=== PATIENT | male | born 1945 | race Caucasian/White ===

== ENCOUNTER 2017-08-14 15:24 | Emergency (ER) | payer MEDICARE, OTHER, SELFPAY ==
[2017-08-14 15:26] VITALS: BP 145/84; PULSE 95; RESP 15; TEMP 37.6; O2SAT 96; BMI 31.3
--- NOTE | 2017-08-14 15:37 | EKG12_ITS ---
Test Reason : GENERAL ILLNESS Blood Pressure : / mmHG Vent. Rate : 096 BPM Atrial Rate : 096 BPM P-R Int : 166 ms QRS Dur : 090 ms QT Int : 336 ms P-R-T Axes : 056 058 034 degrees QTc Int : 424 ms Normal sinus rhythm Normal ECG Confirmed by AMERICA PITTS ([id number]), medical editor NORMAN SANTIAGO ([id number]) on 08/28/2017 5:14:35 PM Referred By: CHERISE Confirmed By:AMERICA PITTS
--- NOTE | 2017-08-14 15:56 | ED.VISSUMM ---
- ER Visit Summary Date of Service: 08/14/17 Chief Complaint: Lightheadedness History of Present Illness: The patient is a 72 M presents to the emergency department with lightheadedness. The patient was actually out in the heat today plowing. He was riding his tractor for almost 8 hours. He states he did not drink anything besides coffee this morning. States when he came into the house, he was feeling very warm. His states that he seemed unsteady on his feet. He has had a mild sore throat for the past 24 hours. He denies fevers, chills, cough, or abdominal pain. He denies any other systemic symptoms. He states his never had symptoms like this before. Physical Examination: Vital signs reviewed General: Well-nourished, well-developed Head: Normocephalic, atraumatic Eyes: Pupils equal and reactive, extraocular muscles intact Neck, supple, no lymphadenopathy Heart: Regular rate and rhythm Respiratory: No distress, clear bilaterally Abdomen: Soft, nontender, nondistended, no peritoneal signs Back: Nontender Extremities: Nontender, no edema, no cords Skin: Normal color no rash Neuro: Alert and oriented, no focal or lateralizing deficits Test Results: [] Emergency Department Course and Treatment: The patient had mild sore throat, nasal drainage, but denied any cough. His symptoms did seem consistent with heat exhaustion. IV was established. Patient was given fluids. Labs were obtained which does show mild elevation of his creatinine. While here, the patient did spike a fever of 101.4. I did obtain a flu in the urine. His chest x-ray shows no focal infiltrate. Flu was negative. Urine shows no evidence of infection. With Tylenol and fluids, his symptoms resolved. I am unsure if this is actually infectious or more because of his heat illness. The patient was cold and had resolution of symptoms. He has no ataxia. He is feeling improved. At this point, I do feel that he is safe for outpatient therapy. Family is comfortable with plan of care. He will be discharged home. Treatment Plan: [] Disposition: Discharge Impression: 1. Heat illness This note was generated with [employer] software. It may contain incorrect words, spelling, and punctuation that were not noted in review of the chart prior to signing ED Disposition - Plan for ED Patient: Disposition: Home or Assisted Living Chief Complaint: General Illness Instructions: ED Exhaustion Heat Referrals: Shelli Romo MD [Primary Care Provider] -
[2017-08-14 16:21] LABS: Absolute Lymphocyte Count 1.26 X10^3/ul (0.83-4.51); Absolute Neutrophil Count 11.6 X10^3/uL (2.0-7.7); Basophil# 0.03 X10^3/uL; Basophil% 0.2 % (0-1); Eosinophil# 0.04 X10^3/uL; Eosinophils% 0.3 % (0-5); Hematocrit 46.3 % (40-54); Hemoglobin 15.5 g/dl (13.0-16.5); Lymphocyte # 1.26 X10^3/ul (4.0); Lymphocyte % 9.3 % (19-41); Mean Corp Hgb Conc 33.5 g/gl (32-36); Mean Corpuscular Hgb 31.3 pg (27.0-32.0); Mean Corpuscular Volume 93.3 fL (80-94); Monocyte# 0.64 X10^3/uL; Monocyte% 4.7 % (0-10); Neutrophil # 11.56 X10^3/uL (2.7-7.7); Neutrophil % 85.4 % (47-70); Platelet Count 169 K/mm3 (150-450); RBC Distribution Width CV 13.7 % (11.6-14.6); Red Blood Count 4.96 M/mm3 (4.6-6.2); White Blood Count 13.6 K/mm3 (4.4-11.0)
[2017-08-14] MEDS: 0.9% Normal Saline 1,000 ML 1000 ML IV ×2 (16:21→17:45)
[2017-08-14 16:22] LABS: POSITIVE COUNT NO; POSITIVE DIFFERENTIAL NO; POSITIVE MORPHOLOGY NO
[2017-08-14 16:27] VITALS: BP 135/80; PULSE 93; RESP 22; O2SAT 92
--- NOTE | 2017-08-14 16:50 | RAD_ITS ---
STUDY: X-RAY CHEST REASON FOR EXAM: Male, 72 years old. Cough TECHNIQUE: Frontal view of the chest COMPARISON: 05/21/2014. FINDINGS: The lungs are clear. There are no pleural effusions. There is no pneumothorax. The heart is normal in size. The visualized osseous structures are within normal limits. RAD/Chest 1 View (Portable) IMPRESSION: No acute thoracic pathology. Electronically Signed: Rancho Franco, at 17:54 EDT Tel , Service support ,
[2017-08-14 16:51] LABS: Anion Gap 8 (5-15); BUN 16 mg/dL (7-18); BUN/Creat Ratio 12.2 RATIO (10-20); Calcium,Total 9.2 mg/dL (8.5-10.1); Chloride 104 mmol/L (98-107); Creatinine, Serum 1.31 mg/dL (0.70-1.30); EST Glomerular Filtration Rate 57 mL/min (>60); Est Glom Filt Rate - Afr Amer 69 mL/min (>60); Glucose 112 mg/dL (74-106); Potassium 3.9 mmol/L (3.5-5.1); Sodium Level 137 mmol/L (136-145)
[2017-08-14 18:06] VITALS: BP 116/88; PULSE 94; RESP 16; O2SAT 98
[2017-08-14] MEDS: Acetaminophen 500 MG Tablet 1000 MG PO (18:31)
[2017-08-14 18:46] LABS: Bacteria 0 SEEN /hpf (None Seen); Color, Urine Yellow (Yellow); Glucose, Dipstick Normal (Normal); Ketone-Dipstick 15 mg/dl (Negative); Leukocyte Esterase-Dipstick Negative /ul (Negative); Mucous, Urine 0 SEEN /hpf (<or=2+); Nitrite-Dipstick Negative (Negative); Occult Blood-Urine 10 /ul (Negative); Protein-Dipstick 15 mg/dl (Negative); Specific Gravity, Urine 1.015 (1.002-1.030); Squamous Epithelial Cells - UA 0 SEEN /hpf (0-5); Urine Bilirubin Dipstick Negative (Negative); Urine Clarity Clear (Clear); Urine Urobilinogen Normal (Normal)
[2017-08-14 19:07] LABS: Red Blood Cells-Urine 0-5 SEEN /hpf (0-5)
[2017-08-14 19:08] LABS: White Blood Cells 0 SEEN /hpf (0-5)
[2017-08-14 20:03] VITALS: BP 118/77; PULSE 81; RESP 16; O2SAT 93
== END 2017-08-14 20:05 | disposition home or self-care (01) ==
PROVIDERS: Emergency Provider Emergency Medicine; Family Provider Family Medicine; PCP Family Medicine
DX: T67.9XXA Effect of heat and light, unspecified, initial encounter (principal); X58.XXXA Exposure to other specified factors, initial encounter; Y93.H9 Activity, other involving exterior property and land maintenance, building and construction; Y92.9 Unspecified place or not applicable; Y99.9 Unspecified external cause status; J02.9 Acute pharyngitis, unspecified; I10 Essential (primary) hypertension; Z79.899 Other long term (current) drug therapy
CPT/HCPCS: 71045; 80048; 81001; 85025; 87804; 93005; 99285

== ENCOUNTER → 2018-03-21 10:30 | Outpatient (CLI) | payer MEDICARE, OTHER, SELFPAY ==
[2018-03-21 12:35] LABS: Erythrocyte Sedimentation Rate 53 mm/hr (0-20)
[2018-03-21 12:38] LABS: Hematocrit 38.2 % (40-54); Hemoglobin 12.3 g/dl (13.0-16.5); Mean Corp Hgb Conc 32.2 g/gl (32-36); Mean Corpuscular Volume 93.2 fL (80-94); Mean Platelet Vol. 9.9 fl (6.2-12.0); Platelet Count 262 K/mm3 (150-450); RBC Distribution Width SD 43.2 fl (35.1-43.9); White Blood Count 8.7 K/mm3 (4.4-11.0)
[2018-03-21 12:40] LABS: Scan Indicated on CBC? Y/N NO
[2018-03-21 12:49] LABS: ALB/GLOB Ratio 0.7 RATIO (0.9-2.4); AST(SGOT) 18 U/L (15-37); Alanine Aminotransfer ALT/SGPT 21 U/L (16-61); Alkaline Phosphatase 60 U/L (45-117); Anion Gap 7 (5-15); BUN 8 mg/dL (7-18); BUN/Creat Ratio 7.7 RATIO (10-20); Calcium,Total 8.2 mg/dL (8.5-10.1); Chloride 103 mmol/L (98-107); Creatinine, Serum 1.04 mg/dL (0.70-1.30); EST Glomerular Filtration Rate 75 mL/min (>60); Est Glom Filt Rate - Afr Amer 90 mL/min (>60); Globulin 4.6 g/dL (2.2-4.2); Glucose 230 mg/dL (74-106); Potassium 4.1 mmol/L (3.5-5.1); Protein, Total 7.6 g/dL (6.4-8.2); Sodium Level 139 mmol/L (136-145)
== END ==
PROVIDERS: Family Provider Family Medicine; PCP Family Medicine; Referring Provider Internal Medicine Gastroenterology; Visit Provider Internal Medicine Gastroenterology
DX: K51.90 Ulcerative colitis, unspecified, without complications (principal)
CPT/HCPCS: 36415; 80053; 85027; 85652; 86140

== ENCOUNTER → 2018-03-27 13:12 | Outpatient (CLI) | payer MEDICARE, OTHER, SELFPAY ==
--- NOTE | 2018-03-27 11:52 | COLBX_PTH ---
PATIENT: ANDREW GUARDADO LOC: [facility] U#:[id number] AGE/SX: 79/M ROOM: RE03/27/[address]: Dr. Castro Macdonald MD : 1945 BED: DIS: SPEC #: [id number] RECD: 03/27/18 13:08 STATUS: CHAPARRO ZAKIYA #: [id number] RILEY: 03/27/18 11:[address]: Castro Macdonald DEPT: SURGICAL PATHOLOGY RECD BY: Alec Guidry ENTERED: 03/27/18 13:24 SP TYPE: COLON BX RAYMOND DR: Dr. Shelli Romo MD [facility] Tissues: A - Right colon B - Left colon Procedures: Surgery Specimen Level IV HEADER OPERATION: Colonoscopy PRE-OP DIAGNOSIS: Ulcerative colitis TISSUE SUBMITTED: A - Right colon biopsies, rule out ulcerative colitis, B - Left colon biopsies, rule out ulcerative colitis MICROSCOPIC DIAGNOSIS A. Right colon, biopsy: Tubular adenoma. See comment. B. Left colon, biopsy: Chronic active colitis with moderate activity. See microscopic description and comment. SJ:rg 03/28/18 COMMENT A. Changes consistent with active colitis are not seen. One of the fragments only show changes consistent with tubular adenoma. Other fragments are unremarkable. Correlation with clinical, endoscopic findings and appropriate follow up are necessary. MICROSCOPIC DESCRIPTION Slides are reviewed. B. The specimen is shows fragments of colonic mucosa with focal ulceration, acute and chronic inflammatory cell infiltrates in the lamina propria, cryptitis, crypt abscesses and mild glandular distortion. Granulomas are not seen. No evidence of dysplasia. GROSS DESCRIPTION A - Received in fixative is one container labeled with the patient's name and designated right colon biopsy. The specimen consists of multiple irregular fragments of light dean soft tissue that in aggregate measure 1 x 0.6 x 0.1 cm. The specimen is totally submitted in one cassette. B - Received in fixative is one container labeled with the patient's name and designated left colon biopsy. The specimen consists of multiple irregular fragments of light dean soft tissue that in aggregate measure 2 x 0.5 x 0.1 cm. The specimen is totally submitted in one cassette. / AM:eloisa 03/27/18 TC:2 CPT: 13446 x2
== END ==
PROVIDERS: Family Provider Family Medicine; PCP Family Medicine; Referring Provider Internal Medicine Gastroenterology; Visit Provider Internal Medicine Gastroenterology
DX: K51.90 Ulcerative colitis, unspecified, without complications (principal)
CPT/HCPCS: 87493; 88305

== ENCOUNTER → 2018-09-24 10:51 | Outpatient (CLI) | payer MEDICARE, OTHER, SELFPAY ==
[2018-09-24 13:46] LABS: Absolute Lymphocyte Count 2.05 X10^3/ul (0.83-4.51); Absolute Neutrophil Count 4.2 X10^3/uL (2.0-7.7); Basophil# 0.02 X10^3/uL; Basophil% 0.3 % (0-1); Eosinophil# 0.14 X10^3/uL; Hematocrit 44.3 % (40-54); Hemoglobin 14.6 g/dl (13.0-16.5); Lymphocyte # 2.05 X10^3/ul (4.0); Lymphocyte % 29.3 % (19-41); Mean Corpuscular Hgb 29.7 pg (27.0-32.0); Mean Corpuscular Volume 90.2 fL (80-94); Mean Platelet Vol. 10.6 fl (6.2-12.0); Monocyte# 0.55 X10^3/uL; Monocyte% 7.9 % (0-10); Neutrophil # 4.23 X10^3/uL (2.7-7.7); Neutrophil % 60.4 % (47-70); Platelet Count 179 K/mm3 (150-450); RBC Distribution Width CV 14.9 % (11.6-14.6); RBC Distribution Width SD 48.4 fl (35.1-43.9); Red Blood Count 4.91 M/mm3 (4.6-6.2)
[2018-09-24 13:50] LABS: POSITIVE COUNT NO; POSITIVE DIFFERENTIAL NO; POSITIVE MORPHOLOGY NO
[2018-09-24 14:00] LABS: AST(SGOT) 18 U/L (15-37); Alanine Aminotransfer ALT/SGPT 18 U/L (16-61); Albumin, Serum 3.4 g/dL (3.2-5.0); Alkaline Phosphatase 68 U/L (45-117); Anion Gap 5 (5-15); BUN 13 mg/dL (7-18); BUN/Creat Ratio 15.7 RATIO (10-20); Bilirubin, Direct 0.08 mg/dL (0.00-0.30); Calcium,Total 8.5 mg/dL (8.5-10.1); Chloride 107 mmol/L (98-107); Cholesterol 93 mg/dL (200); Creatinine, Serum 0.83 mg/dL (0.70-1.30); EST Glomerular Filtration Rate 97 mL/min (>60); Est Glom Filt Rate - Afr Amer 117 mL/min (>60); Globulin 3.8 g/dL (2.2-4.2); Glucose 131 mg/dL (74-106); High Density Lipoprotein 42 mg/dL; Potassium 3.8 mmol/L (3.5-5.1); Protein, Total 7.2 g/dL (6.4-8.2); Sodium Level 138 mmol/L (136-145); Triglycerides 99 mg/dL; Very Low Density Lipoprotein 20 mg/dL (5-40)
[2018-09-24 14:15] LABS: Microalbumin,Random Urine 11.7 mg/L (NO RANGE EST.); Microalbumin:Creatinine Ratio 17.9 mg/g CRE (<30 mg/g CRE)
== END ==
PROVIDERS: Family Provider Family Medicine; PCP Family Medicine; Visit Provider Family Medicine
DX: E11.9 Type 2 diabetes mellitus without complications (principal)
CPT/HCPCS: 36415; 80048; 80061; 80076; 82043; 82570; 85025

== ENCOUNTER → 2019-01-18 15:38 | Outpatient (CLI) | payer MEDICARE, OTHER, SELFPAY | PROVIDERS: Family Provider Family Medicine; PCP Family Medicine; Referring Provider Otolaryngology Otolaryngology/Facial Plastic Surgery; Visit Provider Otolaryngology Otolaryngology/Facial Plastic Surgery | DX: J02.9 Acute pharyngitis, unspecified (principal) | CPT/HCPCS: 87070 ==

== ENCOUNTER → 2019-03-27 14:18 | Outpatient (CLI) | payer MEDICARE, OTHER, SELFPAY ==
[2019-03-27 15:39] LABS: Absolute Lymphocyte Count 1.56 X10^3/uL (0.83-4.51); Absolute Neutrophil Count 6.4 X10^3/uL (2.0-7.7); Basophil# 0.03 X10^3/uL; Basophil% 0.3 % (0-1); Eosinophil# 0.09 X10^3/uL; Hematocrit 43.6 % (40-54); Hemoglobin 14.5 g/dL (13.0-16.5); Lymphocyte # 1.56 X10^3/ul (4.0); Lymphocyte % 18.1 % (19-41); Mean Corp Hgb Conc 33.3 g/dL (32-36); Mean Corpuscular Hgb 31.5 pg (27.0-32.0); Mean Corpuscular Volume 94.6 fL (80-94); Monocyte# 0.51 X10^3/uL; Monocyte% 5.9 % (0-10); NRBC Flagged by Analyzer 0 % (0-5); Neutrophil # 6.39 X10^3/uL (2.7-7.7); Neutrophil % 74.5 % (47-70); Platelet Count 166 K/mm3 (150-450); RBC Distribution Width CV 12.8 % (11.6-14.6); RBC Distribution Width SD 44.2 fl (35.1-43.9); Red Blood Count 4.61 M/mm3 (4.6-6.2); White Blood Count 8.6 K/mm3 (4.4-11.0)
[2019-03-27 16:03] LABS: Anion Gap 6 (5-15); BUN 18 mg/dL (7-18); BUN/Creat Ratio 17.3 RATIO (10-20); Calcium,Total 8.4 mg/dL (8.5-10.1); Chloride 103 mmol/L (98-107); Creatinine, Serum 1.04 mg/dL (0.70-1.30); EST Glomerular Filtration Rate 74 mL/min (>60); Est Glom Filt Rate - Afr Amer 90 mL/min (>60); Glucose 160 mg/dL (74-106); Potassium 4.2 mmol/L (3.5-5.1); Sodium Level 138 mmol/L (136-145)
== END ==
PROVIDERS: Family Provider Family Medicine; PCP Family Medicine; Referring Provider Family Medicine; Visit Provider Family Medicine
DX: E11.9 Type 2 diabetes mellitus without complications (principal); K51.90 Ulcerative colitis, unspecified, without complications
CPT/HCPCS: 36415; 80048; 85025

== ENCOUNTER → 2020-01-17 09:45 | Outpatient (CLI) | payer MEDICARE, OTHER, SELFPAY ==
[2020-01-17 13:57] LABS: AST(SGOT) 20 U/L (15-37); Alanine Aminotransfer ALT/SGPT 27 U/L (16-61); Albumin, Serum 3.6 g/dL (3.2-5.0); Alkaline Phosphatase 79 U/L (45-117); Anion Gap 6 (5-15); BUN 16 mg/dL (7-18); BUN/Creat Ratio 15.4 RATIO (10-20); Calcium,Total 8.8 mg/dL (8.5-10.1); Chloride 103 mmol/L (98-107); Cholesterol 109 mg/dL (200); Creatinine, Serum 1.04 mg/dL (0.70-1.30); EST Glomerular Filtration Rate 74 mL/min (>60); Est Glom Filt Rate - Afr Amer 90 mL/min (>60); Globulin 4.1 g/dL (2.2-4.2); Glucose 180 mg/dL (74-106); High Density Lipoprotein 44 mg/dL; Potassium 4.3 mmol/L (3.5-5.1); Protein, Total 7.7 g/dL (6.4-8.2); Sodium Level 138 mmol/L (136-145); Triglycerides 191 mg/dL; Very Low Density Lipoprotein 38 mg/dL (5-40)
[2020-01-17 14:04] LABS: Microalbumin,Random Urine 6.8 mg/L (NO RANGE EST.); Microalbumin:Creatinine Ratio 7.6 mg/g CRE (<30 mg/g CRE)
== END ==
PROVIDERS: PCP Family Medicine; Referring Provider Family Medicine; Visit Provider Family Medicine
DX: E11.9 Type 2 diabetes mellitus without complications (principal)
CPT/HCPCS: 36415; 80048; 80061; 80076; 82043; 82570

== ENCOUNTER → 2020-04-27 09:55 | Outpatient (CLI) | payer MEDICARE, OTHER, SELFPAY | PROVIDERS: PCP Family Medicine; Visit Provider Family Medicine | DX: E11.9 Type 2 diabetes mellitus without complications (principal) ==

== ENCOUNTER → 2020-05-20 15:18 | Outpatient (CLI) | payer MEDICARE, OTHER, SELFPAY ==
[2020-05-20 18:31] LABS: Hemoglobin A1c 6.4 % (3.8-5.6)
== END ==
PROVIDERS: PCP Family Medicine; Referring Provider Family Medicine; Visit Provider Family Medicine
DX: E11.9 Type 2 diabetes mellitus without complications (principal)
CPT/HCPCS: 36415; 83036

== ENCOUNTER 2021-04-14 06:19 | Outpatient (CLI) | payer MEDICARE, OTHER, SELFPAY ==
--- NOTE | 2021-04-14 06:23 | ECHOD_ITS ---
Reason For Study: CAD/ASHD Procedure This was a 2D Doppler, Color Flow transthoracic echocardiogram. The study was technically difficult. Due to COPD. Exam performed in department. Left Ventricle Normal LV size. Left ventricular systolic function is normal. The estimated ejection fraction is 65 %. No evidence for diastolic dysfunction. No regional wall motion abnormalities noted. Right Ventricle Normal RV size. Normal systolic function. Atria Normal left atrium. Normal right atrium. No doppler evidence for ASD. Mitral Valve There is no mitral annular calcification. Mild focal mitral valve calcification of the anterior leaflet. Trivial mitral valve insufficiency. Tricuspid Valve Normal tricuspid valve. Trivial tricuspid valve insufficiency. Right ventricular systolic pressure estimated to be 25 mmHg. Aortic Valve Trisinus/trileaflet aortic valve. Mild focal aortic valve calcification. Pulmonic Valve The pulmonic valve is not well visualized. Great Vessels The aortic root is not well visualized. Pericardium/Pleural No pericardial effusion. MMode/2D Measurements & Calculations LVIDd: 5.1 cm IVSd: 0.86 cm LAV(MOD-bp): 66.5 ml LVIDs: 3.7 cm LVPWd: 0.94 cm LAV(MOD-bp) Indexed: 33.0 ml/m2 RVDd: 2.9 cm FS: 28.5 % LAV(MOD-sp2): 69.4 ml LAV(MOD-sp4): 57.2 ml LA dimension(2D): 3.3 cm LA A4 area: 19.4 cm2 RA A4 area: 18.2 cm2 Time Measurements MV dec time: 0.33 sec Doppler Measurements & Calculations MV E max sudarshan: 67.0 cm/sec Lat Peak E' Sudarshan: 10.5 cm/sec Med Peak E' Sudarshan: 7.7 cm/sec MV A max sudarshan: 83.5 cm/sec E/E' lat: 6.4 E/E' med: 8.7 MV E/A: 0.80 Ao V2 max: 156.4 cm/sec LV V1 max: 118.2 cm/sec PA V2 max: 132.5 cm/sec Ao max P.8 mmHg LV V1 max P.6 mmHg TR max sudarshan: 234.4 cm/sec TR max P.0 mmHg ECHO/Echo Complete Interpretation Summary The study was technically difficult. Left ventricular systolic function is normal. The estimated ejection fraction is 65 %. Mild focal mitral valve calcification of the anterior leaflet. Trivial mitral valve insufficiency. Trivial tricuspid valve insufficiency. Mild focal aortic valve calcification. Right ventricular systolic pressure estimated to be 25 mmHg. No evidence for diastolic dysfunction. Ordering Physician: Dionisio Cummins Referring Physician: Shelli Romo Performed By: Eileen Ayon, CASECS, RVT
--- NOTE | 2021-04-14 07:42 | STRESSREP_ITS ---
Stress Test Report Date: 04-14-2021 Procedure: Pharmacologic stress nuclear imaging study Indications: Shortness of breath/dyspnea on exertion; CAD; status post TX; status post RCA PTCA's/stent; carotid artery disease; COPD; musculoskeletal/hip discomfort Consent: Per the patient Procedure: The patient underwent pharmacologic (Regadenoson 0.4mg ) evaluation with a peak heart rate of 88 beats per minute (60%predicted maximal heart rate) and a peak blood pressure of 152/78 mmHg. The baseline ECG demonstrated sinus bradycardia. The peak pharmacologic ECG demonstrated no obvious ECG changes. There was a rare PVC during recovery. There was no complaint of chest discomfort during pharmacologic infusion or recovery. The examination was discontinued secondary to completion of protocol. Impression: 1. Pharmacologic (Regadenoson) evaluation 2. Peak pharmacologic ECG with no obvious ECG changes. 3. There was a rare PVC during recovery. 4. Nuclear images pending Myocardial perfusion imaging study: Technique: The patient was injected with millicuries of technetium 99m Cardiolite and subsequently rest SPECT Cardiolite nuclear imaging was obtained in the horizontal long, vertical long, and short axis views. The patient underwent pharmacologic (Regadenoson) evaluation with a peak heart rate of 88 beats per minute (60% percent predicted maximal heart rate) and a peak blood pressure of 152/78 mmHg. The patient was injected with millicuries of technetium 99m Cardiolite and subsequently stress SPECT Cardiolite nuclear imaging was obtained in the horizontal long, vertical long, and short axis views. A gated Cardiolite study at peak stress was obtained. Interpretation: Rest and stress SPECT Cardiolite nuclear imaging status post realignment and normalization demonstrate an area of diminished to absence of myocardial perfusion/tracer uptake in portions of the basal towards mid inferoseptal/inferior segments which appear to be without significant change between rest and stress. There is end systolic thickening and brightening. The gated Cardiolite study demonstrates myocardial thickening and inward wall motion. The reported LVEF is 60%. Impression: 1. Rest and stress SPECT cardiac nuclear imaging demonstrate myocardial perfusion changes potentially compatible with an area of previous myocardial injury/infarction involving portions of the basal to mid inferior segments, however, an element of soft tissue attenuation/artifact cannot necessarily be excluded, with no myocardial perfusion changes considered diagnostic for associated stress-induced myocardial ischemia. 2. The gated Cardiolite study reports an LVEF of 60%. This note was generated with [employer] software. It may contain incorrect words, spelling, and punctuation that were not noted in checking the note before signing.
== END 2021-04-14 23:59 | disposition short-term general hospital (02) ==
LOC: CVS 06:21
PROVIDERS: PCP Family Medicine; Referring Provider Internal Medicine Cardiovascular Disease; Visit Provider Internal Medicine Cardiovascular Disease
DX: I25.10 Atherosclerotic heart disease of native coronary artery without angina pectoris (principal); Z95.5 Presence of coronary angioplasty implant and graft
CPT/HCPCS: 78452; 93017; 93306; A9500; A4216; J2785

== ENCOUNTER 2021-05-06 09:08 | Outpatient (CLI) | payer MEDICARE, OTHER, SELFPAY ==
--- NOTE | 2021-05-06 10:20 | RAD_ITS ---
STUDY: X-RAY CHEST REASON FOR EXAM: Male, 76 years old. Dyspnea on exertion TECHNIQUE: PA and lateral views of the chest. COMPARISON: 2017 FINDINGS: There are interstitial fibrotic changes of the lungs. There is no demonstrated pleural abnormality. Normal size heart. Normal mediastinum and josh. Normal visualized pulmonary arteries. There is atherosclerotic calcification of the aortic arch with tortuosity. There are diffuse degenerative changes of the visualized thoracic spine. There is degenerative osteoarthritis of the bilateral shoulders. There is no demonstrated abnormality of the visualized soft tissue structures of the upper abdomen. RAD/Chest PA and Lateral IMPRESSION: Degenerative changes, as described above. No demonstrated acute cardiopulmonary process. Electronically Signed: Ramón Loyola MD at 16:18 EST ,
--- NOTE | 2021-05-06 12:14 | PFTCOMP_ITS ---
COMPLETE PULMONARY FUNCTION TEST INTERPRETATION Brief HPI: Patient is a 76 year old male, currently under the care of Dr. Cummins, who presents to [facility] for complete pulmonary function tests secondary to diagnosis of dyspnea. Respiratory therapist reports good effort and reproducible results. Interpretation: Forced expiration spirometry shows a severe large airways obstructive ventilatory defect with an FEV1 of 48% predicted. There is a significant bronchodilator response in FVC and FEV1 by strict ATS criteria. Spirograms are of good quality and plateau slowly, indicating slowly emptying areas of the lungs. The respiratory flow volume loop shows decreased expiratory flow rates at all lung volumes consistent with airway obstruction. Lung volumes by body plethysmography show an elevated total lung capacity at 7.9 L, 128% predicted. FRC and RV are elevated out of proportion. Lung volume measurements are consistent with hyperinflation and air-trapping. Diffusion capacity by carbon monoxide is normal at 101% predicted. The airway resistance is elevated. No previous pulmonary function tests were available for review. 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
== END 2021-05-06 23:59 | disposition home or self-care (01) ==
PROVIDERS: PCP Family Medicine; Referring Provider Internal Medicine Cardiovascular Disease; Visit Provider Internal Medicine Cardiovascular Disease
DX: I25.10 Atherosclerotic heart disease of native coronary artery without angina pectoris (principal); R06.00 Dyspnea, unspecified
CPT/HCPCS: 71046; 94060; 94726; 94729

== ENCOUNTER 2021-06-21 11:20 | Outpatient (CLI) | payer MEDICARE, OTHER, SELFPAY ==
[2021-06-21 16:06] LABS: AST(SGOT) 22 U/L (15-37); Alanine Aminotransfer ALT/SGPT 25 U/L (16-61); Albumin, Serum 3.8 g/dL (3.2-5.0); Alkaline Phosphatase 67 U/L (45-117); Anion Gap 5 (5-15); BUN 17 mg/dL (7-18); BUN/Creat Ratio 18.2 RATIO (10-20); Calcium,Total 8.5 mg/dL (8.5-10.1); Chloride 103 mmol/L (98-107); Cholesterol 104 mg/dL (200); Creatinine, Serum 0.93 mg/dL (0.70-1.30); EST Glomerular Filtration Rate 84 mL/min (>60); Est Glom Filt Rate - Afr Amer 102 mL/min (>60); Globulin 3.8 g/dL (2.2-4.2); Glucose 181 mg/dL (74-106); High Density Lipoprotein 35 mg/dL; Potassium 4.2 mmol/L (3.5-5.1); Protein, Total 7.6 g/dL (6.4-8.2); Sodium Level 137 mmol/L (136-145); Triglycerides 142 mg/dL; Very Low Density Lipoprotein 28 mg/dL (5-40)
== END 2021-06-21 23:59 | disposition home or self-care (01) ==
PROVIDERS: PCP Family Medicine; Visit Provider Family Medicine
DX: E11.9 Type 2 diabetes mellitus without complications (principal)
CPT/HCPCS: 36415; 80048; 80061; 80076

== ENCOUNTER → 2022-07-20 | Outpatient (CLI) | payer MEDICARE, OTHER, SELFPAY ==
[2022-07-20 12:47] LABS: AST(SGOT) 18 U/L (15-37); Alanine Aminotransfer ALT/SGPT 23 U/L (16-61); Albumin, Serum 3.6 g/dL (3.2-5.0); Alkaline Phosphatase 70 U/L (45-117); Anion Gap 7 (5-15); BUN 14 mg/dL (7-18); BUN/Creat Ratio 14.1 RATIO (10-20); Bilirubin, Direct 0.12 mg/dL (0.00-0.30); Calcium,Total 8.9 mg/dL (8.5-10.1); Chloride 104 mmol/L (98-107); Cholesterol 96 mg/dL (200); Creatinine, Serum 0.99 mg/dL (0.70-1.30); EST Glomerular Filtration Rate 78 mL/min (>60); Est Glom Filt Rate - Afr Amer 94 mL/min (>60); Globulin 3.8 g/dL (2.2-4.2); Glucose 238 mg/dL (74-106); High Density Lipoprotein 37 mg/dL; Potassium 4.3 mmol/L (3.5-5.1); Protein, Total 7.4 g/dL (6.4-8.2); Sodium Level 138 mmol/L (136-145); Triglycerides 142 mg/dL; Very Low Density Lipoprotein 28 mg/dL (5-40)
== END | disposition home or self-care (01) ==
LOC: MFPLAB 10:16
PROVIDERS: PCP Family Medicine; Visit Provider Family Medicine
DX: E11.9 Type 2 diabetes mellitus without complications (principal)
CPT/HCPCS: 36415; 80048; 80061; 80076

== ENCOUNTER → 2023-07-24 | Outpatient (CLI) | payer MEDICARE, OTHER, SELFPAY | END | disposition home or self-care (01) | LOC: MFPLAB 09:35 | PROVIDERS: PCP Family Medicine; Visit Provider Family Medicine | DX: Z00.00 Encounter for general adult medical examination without abnormal findings (principal) ==

== ENCOUNTER 2024-02-17 23:41 | Emergency (ER) | payer MEDICARE, OTHER, SELFPAY ==
[2024-02-17 23:42] VITALS: BP 121/82; PULSE 74; RESP 24; TEMP 37.4; O2SAT 91; BMI 26.7
[2024-02-17 23:45] VITALS: BP 121/82; PULSE 82; RESP 30; TEMP 37.4; O2SAT 92
[2024-02-17 23:50] VITALS: O2SAT 93
--- NOTE | 2024-02-17 23:54 | EKG12_ITS ---
Test Reason : DYSRHYTHMIA Blood Pressure : */* mmHG Vent. Rate : 65 BPM Atrial Rate : 65 BPM P-R Int : 180 ms QRS Dur : 96 ms QT Int : 388 ms P-R-T Axes : 47 64 54 degrees QTcB Int : 403 ms Normal sinus rhythm with sinus arrhythmia /occasional PVC's Abnormal ECG Confirmed by Bentley Rivera ([id number]), newspaper or periodical editor YOSELIN GRAY ([id number]) on 02/19/2024 11:40:06 AM Referred By: Confirmed By: Bentley Rivera
--- NOTE | 2024-02-17 23:56 | EX.ED.DYSGE1 ---
HPI History of Present Illness Chief Complaint: Cold Sx Informant: patient and spouse/S.O. Narrative Narrative: 78-year-old male has had a fever of 102.1 at max over the course of the day. Generally weak and hard to stand as a result and poor appetite all day in addition to very poor fluid intake. He urinated earlier he states it is difficult to get out which is not new for him, but it was dark. No dysuria. He has COPD and a chronic cough the patient denies this being any worse today, and he denies having any chest discomfort or dyspnea although family states he look like he was breathing harder than usual at 1 point. He refused to take any medication for his fever until just recently tonight, some ibuprofen that his gave him and that eventually she brought him here after she saw him hanging his head over a sink due to being weak according to the patient. He denies any sputum production from his cough that is no worse than usual. He denies any GI symptoms. [facility] Medical History Throat cancer COPD (chronic obstructive pulmonary disease) Type 2 diabetes mellitus Mixed hyperlipidemia Essential hypertension Presence of stent in coronary artery (~11/20/03) Atherosclerotic heart disease of [place] coronary artery without angina pectoris Home Medications ?Medication ?Instructions ?Recorded ?Last Taken ?Type metoprolol succinate 25 mg 12.5 mg PO DAILY 08/14/17 Unknown History tablet,extended release 24 hr simvastatin 40 mg tablet 40 mg PO QHS 08/14/17 Unknown History aspirin 81 mg tablet,delayed 81 mg PO DAILY 03/23/21 Unknown History release (Adult Low Dose Aspirin) coenzyme Q10 200 mg capsule 200 mg PO DAILY 03/23/21 Unknown History ferrous gluconate 256 mg (28 mg 256 mg PO DAILY 03/23/21 Unknown History iron) tablet garlic 600 mg capsule 1,200 mg PO DAILY 03/23/21 Unknown History melatonin 10 mg tablet 10 mg PO HS PRN sleep 03/23/21 Unknown History vitamin B complex 1 tab PO DAILY 03/23/21 Unknown History balsalazide 750 mg capsule 2,250 mg PO BID 04/01/21 Unknown History cholecalciferol (vitamin D3) 50 50 mcg PO DAILY 04/01/21 Unknown History mcg (2,000 unit) capsule glimepiride 4 mg tablet 2 mg PO DAILY 04/01/21 Unknown History turmeric root extract 500 mg 500 mg PO DAILY 04/01/21 Unknown History capsule mesalamine 1,000 mg rectal 1 g NJ Q OTHER DAY 09/29/21 Unknown History suppository metformin 500 mg tablet,extended 500 mg PO DAILY 09/29/21 Unknown History release 24 hr omega 6-jvz-[id number]-fish oil 1,200 mg 1 cap PO DAILY 09/29/21 Unknown History (144 mg-216 mg) capsule (Fish Oil) azithromycin 250 mg tablet 250 mg PO DAILY #4 TABLETS 02/18/24 Unknown Rx Allergy/AdvReac Type Severity Reaction Status Date / Time atorvastatin AdvReac muscle Verified 09/29/21 08:39 aches Family History Mother No problems noted. Father No problems noted. Surgical History Presence of coronary angioplasty implant and graft (~11/20/03) Social History Smoking Status: Current every day smoker tobacco type: cigarettes quit status: has quit before alcohol intake: never substance use type: does not use caffeine: Yes Type: coffee Number of servings: 4 ROS ROS ED Constitutional Constitutional ED: Reports anorexia, fever(s), malaise and weakness; Denies body ache(s) or chills Eyes Eyes: Denies change in vision or diplopia ENT ENT ED: Denies ear pain, rhinorrhea or sore throat Cardiovascular Cardiovascular: Reports leg edema; Denies chest pain or palpitations Respiratory/Chest Respiratory/Chest: Reports cough; Denies dyspnea or sputum Gastrointestinal Gastrointestinal: Denies abdominal pain, diarrhea, nausea or vomiting Genitourinary Genitourinary ED: Reports decreased urination and drinking/eating less; Denies dysuria or hematuria Musculoskeletal Musculoskeletal: Denies back pain or neck pain Integumentary Denies abscess or rash Neurologic Neurologic: Denies headache(s), paresthesias or weakness Psychiatric Psychiatric: Denies anxiety or suicidal thoughts EXAM Physical Exam Const Vital Signs: 02/17/24 23:42 02/17/24 23:45 02/17/24 23:49 Temperature 99.3 F H 99.3 F H Temperature Source Oral Oral Pulse Rate 74 82 Respiratory Rate 24 H 30 H Respiratory Effort Normal Respiratory Depth Respiratory Pattern Normal Blood Pressure 121/82 H 121/82 H Blood Pressure Mean 95 95 Pulse Ox 91 92 Oxygen Delivery Method Room Air Room Air 02/17/24 23:50 02/18/24 00:03 02/18/24 00:45 Temperature 98.4 F Temperature Source Oral Pulse Rate 77 Respiratory Rate 20 H Respiratory Effort Normal Respiratory Depth Normal Respiratory Pattern Normal Blood Pressure 129/65 H Blood Pressure Mean 86 Pulse Ox 93 94 Oxygen Delivery Method Room Air Room Air Room Air 02/18/24 00:59 02/18/24 01:42 Temperature 98.4 F Temperature Source Oral Pulse Rate 75 71 Respiratory Rate 20 H 18 Respiratory Effort Respiratory Depth Respiratory Pattern Blood Pressure 141/72 H 125/77 H Blood Pressure Mean 95 93 Pulse Ox 93 93 Oxygen Delivery Method Room Air Room Air Positive well nourished and well developed General Appearance ED: well developed and NAD HEENT Reports moist mucous membranes normocephalic and atraumatic Eyes PERRL and EOMs intact bilaterally Neck full ROM and supple Resp normal respiratory effort and clear to auscultation bilaterally Resp Narrative: Diminished breath sounds throughout, symmetric, otherwise clear Effort and Inspection: able to speak in complete sentences; Negative for labored, grunting or uses accessory muscles Cardio regular rate and regular rhythm Cardio Narrative: Very distant heart sounds GI non-tender and non-distended Auscultation: normoactive bowel sounds Palpation: soft Back/Spine no CVA tenderness General Back: other FROM Extremity normal to inspection General Extremety ED: Yes edema; Negative for pulses abnormal or tenderness General Extremity: edema bilateral lower extremity Details: mild (Both feet and ankles); Negative for pulses abnormal Neuro oriented x3, CN's II-XII intact bilaterally and no sensory deficits noted Neuro Narrative: Can hold up all 4 extremities without difficulty and symmetrically Sensorium / Orientation: awake and alert Motor Exam: strength 5/5 throughout Psych mental status grossly normal Skin no rashes or lesions noted and no wounds MDM MDM MDM Narrative Medical decision making narrative: Patient was worked up for infections, this does not exclude myocarditis so EKG and troponin were obtained, these are unremarkable. The rest of his tests look good except for elevated white blood count with a leftward shift but no significant bands, but prior to all of this, the first test we obtained was a 1 view chest x-ray which on my interpretation shows a right lower lobe infiltrate so we started antibiotics right away, Rocephin and azithromycin according to our protocols. His lactate is within normal limits, his vital signs look good on reexamination he feels well. He was offered admission but he wants to try to go home. He is sitting on the edge of the bed and is able to stand without difficulty. I agree that he was probably very weak earlier because he had a fever. Although it is not dangerous not to treat his fever, I advised him that he is more likely to feel better like he does now if he does so and he is in agreement. I had nurses ambulate him on room air, as he has no home oxygen at home if we are going to try to send him home we need to make sure he is not hypoxic. He did well, walking a decent distance without getting dyspneic and his oxygen levels did not drop below 92% on room air. We discussed reasons to return, and at this time I do not think we need to treat him with steroids for a COPD exacerbation since he is not even dyspneic. Lab Data Attestation: I reviewed the patient's lab results. Labs: Laboratory Results - last 24 hr 02/17/24 02/18/24 02/18/24 23:47 00:06 01:06 WBC 17.0 H RBC 4.47 L Hgb 13.9 Hct 42.1 MCV 94.2 H MCH 31.1 MCHC 33.0 RDW Std Deviation 48.4 H RDW Coeff of Ashlee 13.9 Plt Count 187 MPV 10.2 Immature Gran % (Auto) 2.000 H Neut % (Auto) 81.6 H Lymph % (Auto) 9.8 L [place] % (Auto) 6.3 Eos % (Auto) 0.1 Baso % (Auto) 0.2 Absolute Neuts (auto) 13.9 H Absolute Lymphs (auto) 1.66 Nucleated RBC % 0 PT 15.0 H INR 1.2 APTT 34.0 Sodium 136 Potassium 3.5 Chloride 103 Carbon Dioxide 25.0 Anion Gap 8 BUN 12 Creatinine 0.92 Estim Creat Clear Calc 67.24 Est GFR (MDRD) Af Amer 103 Est GFR (MDRD) Non-Af 85 BUN/Creatinine Ratio 13.1 Glucose 160 H Lactic Acid 1.3 Calcium 8.7 Total Bilirubin 0.70 AST 12 L ALT 15 L Alkaline Phosphatase 63 Troponin I High Sens 16 Total Protein 7.2 Albumin 3.5 Globulin 3.7 Albumin/Globulin Ratio 0.9 Urine Color Yellow Urine Clarity Clear Urine pH 6.5 Ur Specific [place] 1.015 Urine Protein 30 H Urine Glucose (UA) Normal Urine Ketones 15 H Urine Occult Blood 50 H Urine Nitrite Negative Urine Bilirubin Negative Urine Urobilinogen Normal Ur Leukocyte Esterase Negative Urine RBC 5-10 SEEN Urine WBC 0 SEEN Ur Squamous Epith Cells 0-5 SEEN Calcium Oxalate Crystal 3+ Urine Bacteria RARE Hyaline Casts 0-5 SEEN Urine Mucus RARE Radiography Diagnostic Testing: Clinical Impression(s) from Imaging Studies Chest X-Ray 02/17/24 23:59 IMPRESSION: Right lung base pneumonia Electronically Signed: Wilfrid Francois MD at 0:22 EST , Rhythm Strip Rhythm Strip: Sinus Rhythm Rate: 75 Ectopy: None EKG Initial EKG: Attestation: I personally reviewed and interpreted this EKG as follows: Interpretation: Sinus Rhythm and No Acute Injury Pattern Comments: Nml axis & intervals; nml EKG Discharge Plan Triage Chief Complaint: Cold Sx Other Complaint: Fever ED Provider: Viet Alfonso Dx/Rx/DC Orders Clinical Impression: Pneumonia, COPD (chronic obstructive pulmonary disease) Instructions: ED Pneumonia (Adult) Prescriptions: New azithromycin 250 mg tablet 250 mg PO DAILY Qty: 4 0RF No Action turmeric root extract 500 mg capsule 500 mg PO DAILY cholecalciferol (vitamin D3) 50 mcg (2,000 unit) capsule 50 mcg PO DAILY balsalazide 750 mg capsule 2,250 mg PO BID mesalamine 1,000 mg suppository 1 g NJ Q OTHER DAY omega 7-ssg-[id number]-fish oil [Fish Oil] 1,200 (144-216) mg capsule 1 cap PO DAILY melatonin 10 mg tablet 10 mg PO HS PRN (Reason: sleep) garlic 600 mg capsule 1,200 mg PO DAILY ferrous gluconate 256 mg (28 mg iron) tablet 256 mg PO DAILY vitamin B complex Tablet 1 tab PO DAILY coenzyme Q10 200 mg capsule 200 mg PO DAILY aspirin [Adult Low Dose Aspirin] 81 mg tablet,delayed release (DR/EC) 81 mg PO DAILY glimepiride 4 mg tablet 2 mg PO DAILY metformin 500 mg tablet extended release 24 hr 500 mg PO DAILY simvastatin 40 MG tablet 40 mg PO QHS metoprolol succinate 25 MG tablet 12.5 mg PO DAILY Primary Care Provider: Shelli Romo Referrals: Shelli Romo MD [Primary Care Provider] - 3-5 Days Print Language: Congolese Disposition Disposition: Home, Self Care
--- NOTE | 2024-02-17 23:59 | RAD_ITS ---
EXAM: XR Chest 1 View INDICATION: Male, 78 years old. Fever TECHNIQUE: Single AP view COMPARISON: None FINDINGS: DEVICES: None LUNGS: Patchy airspace opacification at the right lung base which partially obscures the hemidiaphragm. No concerning pulmonary nodule. No pleural effusion or pneumothorax. MEDIASTINUM: Borderline cardiomegaly. Mediastinal silhouette is within normal limits. No central pulmonary vascular congestion. Calcification of the aortic arch. . SKELETAL STRUCTURES: No acute skeletal abnormality. UPPER ABDOMEN: Unremarkable RAD/Chest 1 View (Portable) IMPRESSION: Right lung base pneumonia Electronically Signed: Wilfrid Francois MD at 0:22 EST ,
[2024-02-18] MEDS: 0.9% Normal Saline (500mL Bag) 500 ML 999 ML IV (00:02)
[2024-02-18 00:03] VITALS: O2SAT 93
[2024-02-18 00:31] LABS: Absolute Lymphocyte Count 1.66 X10^3/uL (0.83-4.51); Absolute Neutrophil Count 13.9 X10^3/uL (2.0-7.7); Basophil# 0.04 X10^3/uL; Basophil% 0.2 % (0-1); Eosinophil# 0.01 X10^3/uL; Eosinophils% 0.1 % (0-5); Hematocrit 42.1 % (40-54); Hemoglobin 13.9 g/dL (13.0-16.5); Lymphocyte # 1.66 X10^3/ul (0.83-4.51); Lymphocyte % 9.8 % (19-41); Mean Corpuscular Hgb 31.1 pg (27.0-32.0); Mean Corpuscular Volume 94.2 fL (80-94); Mean Platelet Vol. 10.2 fl (6.2-12.0); Monocyte# 1.08 X10^3/uL; Monocyte% 6.3 % (0-10); NRBC Flagged by Analyzer 0 % (0-5); Neutrophil # 13.88 X10^3/uL (2.7-7.7); Neutrophil % 81.6 % (47-70); Platelet Count 187 K/mm3 (150-450); RBC Distribution Width CV 13.9 % (11.6-14.6); RBC Distribution Width SD 48.4 fl (35.1-43.9); Red Blood Count 4.47 M/mm3 (4.6-6.2)
[2024-02-18 00:37] LABS: ALB/GLOB Ratio 0.9 RATIO (0.9-2.4); AST(SGOT) 12 U/L (15-37); Alanine Aminotransfer ALT/SGPT 15 U/L (16-61); Albumin, Serum 3.5 g/dL (3.2-5.0); Alkaline Phosphatase 63 U/L (45-117); Anion Gap 8 (5-15); BUN 12 mg/dL (7-18); BUN/Creat Ratio 13.1 RATIO (10-20); Calcium,Total 8.7 mg/dL (8.5-10.1); Chloride 103 mmol/L (98-107); Creatinine, Serum 0.92 mg/dL (0.70-1.30); EST Glomerular Filtration Rate 85 mL/min (>60); Est Glom Filt Rate - Afr Amer 103 mL/min (>60); Estimated Creatinine Clearance 67.24 ml/min; Globulin 3.7 g/dL (2.2-4.2); Glucose 160 mg/dL (74-106); Potassium 3.5 mmol/L (3.5-5.1); Protein, Total 7.2 g/dL (6.4-8.2); Sodium Level 136 mmol/L (136-145); Troponin-I HS 16 pg/mL (3.0-78.0)
[2024-02-18] MEDS: Ceftriaxone 2 GM in 0.9% Normal Saline (50mL MB+) 50 ML IV (00:39)
[2024-02-18 00:45] VITALS: BP 129/65; PULSE 77; RESP 20; TEMP 36.9; O2SAT 94
[2024-02-18 00:46] LABS: International Normalized Ratio 1.2
[2024-02-18 00:52] LABS: Lactic Acid 1.3 mmol/L (0.4-1.9)
[2024-02-18 00:59] VITALS: BP 141/72; PULSE 75; RESP 20; TEMP 36.9; O2SAT 93
[2024-02-18 01:11] LABS: White Blood Cells 0 SEEN /hpf (0-5)
[2024-02-18 01:13] LABS: Color, Urine Yellow (Yellow); Glucose, Dipstick Normal (Normal); Ketone-Dipstick 15 mg/dl (Negative); Leukocyte Esterase-Dipstick Negative /ul (Negative); Nitrite-Dipstick Negative (Negative); Occult Blood-Urine 50 /ul (Negative); Protein-Dipstick 30 mg/dl (Negative); Specific Gravity, Urine 1.015 (1.002-1.030); Urine Bilirubin Dipstick Negative (Negative); Urine Clarity Clear (Clear); Urine Urobilinogen Normal (Normal); Urine pH 6.5 (5.0 - 8.0)
[2024-02-18 01:19] LABS: Bacteria RARE /hpf (None Seen); Calcium Oxalate Crystals Ur 3+ /hpf (<or=2+); Hyaline Cast 0-5 SEEN /lpf (0-5); Mucous, Urine RARE /hpf (<or=2+); Red Blood Cells-Urine 5-10 SEEN /hpf (0-5); Squamous Epithelial Cells - UA 0-5 SEEN /hpf (0-5)
[2024-02-18] MEDS: Azithromycin 500 MG in Dextrose 5%-Water (250mL Bag) 250 ML 250 MG IV (01:41)
[2024-02-18 01:42] VITALS: BP 125/77; PULSE 71; RESP 18; O2SAT 93
[2024-02-18 01:44] VITALS: O2SAT 93
[2024-02-18 03:04] VITALS: BP 119/65; PULSE 84; RESP 18; TEMP 36.9; O2SAT 95
== END 2024-02-18 03:13 | disposition home or self-care (01) ==
PROVIDERS: Emergency Provider Emergency Medicine; PCP Family Medicine; Visit Provider Emergency Medicine
DX: J18.9 Pneumonia, unspecified organism (principal); J44.0 Chronic obstructive pulmonary disease with (acute) lower respiratory infection; E11.9 Type 2 diabetes mellitus without complications; I25.10 Atherosclerotic heart disease of native coronary artery without angina pectoris; I10 Essential (primary) hypertension; E78.2 Mixed hyperlipidemia; F17.210 Nicotine dependence, cigarettes, uncomplicated; Z95.5 Presence of coronary angioplasty implant and graft; Z79.82 Long term (current) use of aspirin; Z79.84 Long term (current) use of oral hypoglycemic drugs; Z79.899 Other long term (current) drug therapy
CPT/HCPCS: 71045; 80053; 81001; 83605; 84484; 85025; 85610; 85730; 87040; 87086; 87088; 87631; 93005; 96365; 96367; 99285; A4216; J0696

== ENCOUNTER → 2024-02-28 | Outpatient (CLI) | payer MEDICARE, OTHER, SELFPAY ==
--- NOTE | 2024-02-28 14:35 | RAD_ITS ---
STUDY: X-RAY CHEST REASON FOR EXAM: Male, 78 years old. Right-sided chest pain. TECHNIQUE: PA and lateral views of the chest. COMPARISON: Comparison is made with prior study dated February 18, 2024. FINDINGS: Progressive right lower lobe infiltrate with a small right pleural effusion. Radiographic follow-up recommended. Normal size heart. Normal mediastinum and josh. Normal visualized pulmonary arteries. There is atherosclerotic calcification of the aortic arch with tortuosity. There are degenerative changes of the visualized thoracic spine. Normal visualized ribs, clavicles, and shoulders. There is no demonstrated abnormality of the visualized soft tissue structures of the upper abdomen. RAD/Chest PA and Lateral IMPRESSION: Progressive right lower lobe infiltrate a small right pleural effusion. Follow-up recommended. Electronically Signed: Filemon Reyes MD at 15:41 EST ,
[2024-02-28 17:46] LABS: Absolute Lymphocyte Count 2.48 X10^3/uL (0.83-4.51); Absolute Neutrophil Count 8.8 X10^3/uL (2.0-7.7); Basophil# 0.06 X10^3/uL; Basophil% 0.5 % (0-1); Eosinophil# 0.17 X10^3/uL; Eosinophils% 1.4 % (0-5); Hematocrit 43.4 % (40-54); Hemoglobin 13.8 g/dL (13.0-16.5); Lymphocyte # 2.48 X10^3/ul (0.83-4.51); Lymphocyte % 20.3 % (19-41); Mean Corp Hgb Conc 31.8 g/dL (32-36); Mean Corpuscular Hgb 30.5 pg (27.0-32.0); Mean Corpuscular Volume 95.8 fL (80-94); Mean Platelet Vol. 9.3 fl (6.2-12.0); Monocyte# 0.54 X10^3/uL; Monocyte% 4.4 % (0-10); NRBC Flagged by Analyzer 0 % (0-5); Neutrophil # 8.81 X10^3/uL (2.7-7.7); Neutrophil % 72.3 % (47-70); Platelet Count 301 K/mm3 (150-450); RBC Distribution Width CV 13.5 % (11.6-14.6); Red Blood Count 4.53 M/mm3 (4.6-6.2); White Blood Count 12.2 K/mm3 (4.4-11.0)
[2024-02-28 18:11] LABS: ALB/GLOB Ratio 0.7 RATIO (0.9-2.4); AST(SGOT) 26 U/L (15-37); Alanine Aminotransfer ALT/SGPT 25 U/L (16-61); Alkaline Phosphatase 63 U/L (45-117); Anion Gap 5 (5-15); BUN 12 mg/dL (7-18); BUN/Creat Ratio 15.1 RATIO (10-20); Calcium,Total 9.5 mg/dL (8.5-10.1); Chloride 103 mmol/L (98-107); Creatinine, Serum 0.79 mg/dL (0.70-1.30); EST Glomerular Filtration Rate 100 mL/min (>60); Est Glom Filt Rate - Afr Amer 121 mL/min (>60); Globulin 4.4 g/dL (2.2-4.2); Glucose 142 mg/dL (74-106); Potassium 3.4 mmol/L (3.5-5.1); Protein, Total 7.4 g/dL (6.4-8.2); Sodium Level 141 mmol/L (136-145)
== END | disposition home or self-care (01) ==
LOC: MTLAB 14:35
PROVIDERS: PCP Family Medicine; Referring Provider Family Medicine; Visit Provider Family Medicine
DX: J15.9 Unspecified bacterial pneumonia (principal)
CPT/HCPCS: 36415; 71046; 80053; 85025

== ENCOUNTER → 2024-10-28 | Outpatient (CLI) | payer MEDICARE, OTHER, SELFPAY ==
[2024-10-28 10:13] LABS: Hematocrit 44.6 % (40-54); Hemoglobin 14.6 g/dL (13.0-16.5); Immature Granulocytes Count 0.020 X10^3/uL (0.0-0.0); Mean Corp Hgb Conc 32.7 g/dL (32-36); Mean Corpuscular Volume 98.2 fL (80-94); Mean Platelet Vol. 10.7 fl (6.2-12.0); NRBC Flagged by Analyzer 0 % (0-5); Platelet Count 206 K/mm3 (150-450); RBC Distribution Width CV 13.1 % (11.6-14.6); RBC Distribution Width SD 46.5 fl (35.1-43.9); Red Blood Count 4.54 M/mm3 (4.6-6.2); White Blood Count 7.8 K/mm3 (4.4-11.0)
[2024-10-28 10:56] LABS: Creatinine, Urine (random) 113.00 mg/dL (39.00-259.00); Microalbumin,Random Urine 13.7 mg/L (<20 mg/L)
[2024-10-28 11:13] LABS: AST(SGOT) 19 U/L (<=37); Alanine Aminotransfer ALT/SGPT 13 U/L (<=46); Albumin, Serum 4.3 g/dL (3.4-4.8); Alkaline Phosphatase 70 U/L (40-129); Anion Gap 11 (5-15); BUN 14 mg/dL (4-19); BUN/Creat Ratio 14.8 RATIO (10-20); Calcium,Total 9.2 mg/dL (7.6-11.0); Carbon Dioxide 28.4 mmol/L (21.0-32.0); Chloride 100 mmol/L (98-108); Globulin 2.8 g/dL (2.2-4.2); Glucose 252 mg/dL (70-99); Potassium 4.6 mmol/L (3.3-5.1); Vitamin D,25 Hydroxy 27.2 ng/mL (30-100)
[2024-10-29 05:07] LABS: Prealbumin 24 mg/dL (9-32)
== END | disposition home or self-care (01) ==
LOC: MFPLAB 08:26
PROVIDERS: PCP Family Medicine; Visit Provider Family Medicine
DX: K51.90 Ulcerative colitis, unspecified, without complications (principal); E11.9 Type 2 diabetes mellitus without complications
CPT/HCPCS: 36415; 80053; 82043; 82306; 82570; 84134; 85025

== ENCOUNTER → 2025-03-15 | Outpatient (CLI) | payer MEDICARE, OTHER, SELFPAY ==
--- NOTE | 2025-03-15 07:50 | CT_ITS ---
PROCEDURE: LOW DOSE CT LUNG SCREENING 03/15/2025 REASON FOR EXAM: Lung screening TECHNIQUE: Procedure Code: [id number] Modality: CT Procedure: LOW DOSE CT LUNG SCREENING Coronal and Sagittal reconstruction series were provided. One or more dose reduction techniques were used (e.g., Automated exposure control, adjustment of the mA and/or kV according to patient size, use of iterative reconstruction technique). REFERENCE LINK: [employer] Lung-RADS RADIATION DOSE SUMMARY: DLP: 77.26 mGycm COMPARISON: None available. FINDINGS: PULMONARY NODULES: (Only nodules >3mm are reported) Nodules described below are on series 2 unless otherwise specified. Pulmonary Nodules: Right upper lobe 3 mm solid pulmonary nodule (image 48). Right lower lobe 5 mm subpleural pulmonary nodule (image 142). Inferior right upper lobe perifissural 3 mm pulmonary nodule (image 144). Right perifissural pulmonary nodule (image 146). A focal lingular hypodensity may reflect atelectatic versus inflammatory changes (series 2, image 207). Right lower lobe calcified granuloma. Hardware:None. Lymph Nodes:No lymphadenopathy. Heart and Vasculature:The heart is normal in size. Trace pericardial effusion.Dilated thoracic aorta measuring up to 4.3 cm. The main pulmonary artery is normal in caliber. Scattered atherosclerotic calcification in the thoracic aorta. Calcification at the aortic valve. Coronary Artery Calcifications: Present. Lungs and Airways: Emphysematous changes of the lungs predominantly centrilobular. Right middle lobe atelectasis versus scarring. Pleura:No pneumothorax or pleural effusion. Upper Abdomen:Unremarkable. Bones:No aggressive osseous lesions. Degenerative changes. CT/Low Dose CT Lung Screening IMPRESSION: Multiple pulmonary nodules measuring up to 5 mm. Atelectatic versus inflammato ry changes in the lingula. Coronary artery calcification (CAC) is present. Lung-RADS Category: 0 INFLAMMATORY-INCOMPLETE. FINDINGS SUGGESTIVE OF AN INFLAM MATORY OR INFECTIOUS PROCESS. RECOMMEND 1-3 MONTH LDCT. Other Significant Findings: Dilated ascending thoracic aorta measuring up to 4. 3 cm. Reading Location: [id number]
--- OUTSIDE RECORDS SUMMARY | 2025-03-15 07:50 | XMS RPT_ITS | CCD ---
Author Organization [facility] [place] [facility] Care Team Providers Care Machining Technician Name Role Phone Trupti DOYLE, Bhaskar Morris Unavailable ALEA, SELENE Unavailable Unavailable ALEA, SELENE Unavailable Unavailable Jolliff Shelli Unavailable Unavailable ALEA, SELENE Unavailable Unavailable ALEA, SELENE Unavailable Unavailable Jomandie Shelli Unavailable Unavailable JESSICA COSBYNETH E Unavailable Unavailable SELENE COSBY E Unavailable Unavailable Dr. Shelli Romo Primary Care Provider Stephanie Moran Attending Provider Unavailable Dr. Shelli Romo Referring Provider Dr. Dionisio Cummins Attending Provider [phone] Dr. Dionisio Cummins Referring Provider Dr. Dionisio Cummins Other Provider Dr. Jun Byrne Attending Provider Dr. Héctor Bustos MD Primary Care Provider Dr. Héctor Bustos MD Attending Provider Héctor Bustos Attending Unavailable Héctor Bustos Primary Care Unavailable Get Murillo Referring Unavailable Get Murillo Attending Unavailable Shelli Romo Primary Care Unavailable Shelli Romo Primary Care Unavailable Viet Alfonso Attending Unavailable Allergies Allergy Classification Reported Allergen(s) Allergy Type Date of Onset Reaction(s) Facility (4 sources) atorvastatin Drug Allergy 04-01-2021 muscle aches [facility] (1 source) atorvastatin Drug Allergy 09-29-2021 [facility] Repository Medications Current Medications Medication Drug Class(es) Dates Sig (Normalized) Sig (Original) aspirin 81 mg delayed release oral tablet (6 sources) Nonsteroidal Anti-inflammatory Drug Start: 03-23-2021 Aspirin (Adult Low Dose Aspirin) 81 mg tablet,delayed release (DR/EC) Active 81 mg PO DAILY March 23, 2021 1:00am Start: 11-23-2016 take 1 tablet by yolanda th once daily ADULT ASPIRIN EC LOW STRENGTH 81 MG TBEC One tablet by mouth daily ASPIRIN [id number] Brigitte C Siders azithromycin 250 mg oral tablet (1 source) Macrolide Antimicrobial Start: 02-18-2024 take 1 tablet by mouth once daily Azithromycin 250 mg tablet Active 250 mg PO DAILY 4 0 February 18, 2024 1:00am balsalazide disodium 750 mg oral capsule (4 sources) Aminosalicylate Start: 04-01-2021 take 1 capsule by mouth twice daily Balsalazide 750 mg capsule Active 2250 mg PO TWICE A DAY April 01, 2021 1:00am Start: 04-01-2021 take 2250 mg by mout h twice daily Balsalazide Active 2250 MG PO TWICE A DAY April 01, 2021 1:00am cholecalciferol 0.05 mg oral capsule (4 sources) Vitamin D Start: 04-01-2021 take 1 capsule by mouth once daily Cholecalciferol (Vitamin D3) 50 mcg (2,000 unit) capsule Active 50 ug PO DAILY April 01, 2021 1:00am ferrous gluconate 256 mg oral tablet (4 sources) Start: 03-23-2021 take 1 tablet by mouth once daily Ferrous Gluconate 256 mg (28 mg iron) tablet Active 256 mg PO DAILY March 23, 2021 1:00am Garlic preparation (4 sources) Non-Standardized Food Allergenic Extract Start: 03-23-2021 take 1200 mg by mouth once daily Garlic Active 1200 MG PO DAILY March 23, 2021 4:08pm Start: 03-23-2021 take 2 capsules by m outh once daily Garlic 600 mg capsule Active 1200 mg PO DAILY March 23, 2021 1:00am Start: 03-23-2021 take 1200 mg by mouth once nereida ly Garlic Active 1200 MG PO DAILY March 23, 2021 1:00am glimepiride 4 mg oral tablet (8 sources) Sulfonylurea Start: 04-01-2021 take 2 mg by mouth once daily Glimepiride 4 mg tablet Active 2 mg PO DAILY April 01, 2021 12:45pm Start: 04-01-2021 take 2 mg by mouth once daily Glimepiride Active 2 MG PO DAILY April 01, 2021 12:45pm Start: 03-23-2021 End: 04-01-2021 take 1 tablet by mouth once daily Glimepiride 4 mg tablet Discontinued 4 mg PO DAILY March 23, 2021 1:00am April 01, 2021 12:49pm melatonin 10 mg oral tablet (4 sources) Start: 03-23-2021 take 1 tablet by mouth at bedtime as needed for sleep Melatonin 10 mg tablet Active 10 mg PO BEDTIME as needed for sleep March 23, 2021 1:00am mesalamine 1000 mg rectal suppository (7 sources) Aminosalicylate Start: 04-01-2021 End: 09-29-2021 Mesalamine 1,000 mg suppository Active 1 g RC every other day September 29, 2021 8:41am Start: 04-01-2021 End: 09-29-2021 Mesalamine Active 1 GM RC ev pooja other day September 29, 2021 8:41am 24 hr metFORMIN hydrochloride 500 mg extended release oral tablet (7 sources) Biguanide Start: 09-29-2021 take 1 tablet by mouth once daily Metformin 500 mg tablet extended release 24 hr Active 500 mg PO DAILY September 29, 2021 12:00am Start: 03-23-2021 End: 09-29-2021 take 1 tablet by mouth once daily Metformin 500 mg tablet Discontinued 500 mg PO DAILY March 23, 2021 1:00am September 29, 2021 8:42am 24 hr metoprolol succinate 25 mg extended release oral tablet (6 sources) beta-Adrenergic Ryan Start: 08-14-2017 Metopr olol Succinate 25 MG tablet Active 12.5 mg PO DAILY August 14, 2017 12:00am Start: 08-14-2017 take 12.5 mg by mout h once daily Metoprolol Succinate Active 12.5 MG PO DAILY August 14, 2017 12:00am Start: 11-23-2016 TOPROL XL XR24 H-TAB 5 mg every other day METOPROLOL SUCCINATE [id number] Brigitte Smith Blum 7-Pcl-Crq-Fish Oil (Fi sh Oil) 1,200 (144-216) mg capsule (7 sources) Start: 09-29-2021 Blum 3-Dha-Ep a-Fish Oil (Fish Oil) 1,200 (144-216) mg capsule Active 1 NMA PO DAILY September 29, 2021 8:41am Start: 09-29-2021 take 1 capsule by mo uth once daily Blum 7-Gkh-Unw-Fish Oil (Fish Oil) 1,200 (144-216) mg capsule Active 1 CAP PO DAILY September 29, 2021 8:41am Start: 04-01-2021 Blum 3-Dha-Ep a-Fish Oil (Fish Oil) 1,200 (144-216) mg capsule Active CAP PO April 01, 2021 12:43pm Start: 04-01-2021 End: 09-29-2021 Blum 2-Kla-Uva-Fish Oil (Fi sh Oil) 1,200 (144-216) mg capsule Discontinued NMA PO April 01, 2021 1:00am September 29, 2021 8:42am Start: 04-01-2021 End: 09-29-2021 Blum 1-Pwv-Ysh-Fish Oil (Fi sh Oil) 1,200 (144-216) mg capsule Discontinued CAP PO April 01, 2021 1:00am September 29, 2021 8:42am simvastatin 40 mg oral tablet (4 sources) HMG-CoA Reductase Inhibitor Start: 08-14-2017 take 1 tablet by mouth at bedtime Simvastatin 40 MG tablet Active 40 mg PO AT BEDTIME August 14, 2017 12:00am Turmeric Root Extract (4 sources) Start: 04-01-2021 take 500 mg by mouth once daily Turmeric Root Extract Active 500 MG PO DAILY April 01, 2021 12:43pm Start: 04-01-2021 take 1 capsule by mo uth once daily Turmeric Root Extract 500 mg capsule Active 500 mg PO DAILY April 01, 2021 1:00am Start: 04-01-2021 take 500 mg by mouth once marcia y Turmeric Root Extract Active 500 MG PO DAILY April 01, 2021 1:00am ubidecarenone 200 mg oral capsule (4 sources) Start: 03-23-2021 take 10 capsules by mouth once daily Coenzyme Q10 200 mg capsule Active 200 mg PO DAILY March 23, 2021 1:00am Vitamin B Complex (3 sources) Start: 03-23-2021 take 1 tablet by mouth once daily Vitamin B Complex Active 1 TABLET PO DAILY March 23, 2021 4:11pm Start: 03-23-2021 take 1 tablet by mouth once da ana Vitamin B Complex Active 1 TABLET PO DAILY March 23, 2021 1:00am Vitamin B Complex tablet (1 source) Start: 03-23-2021 Vitamin B Comp carmel tablet Active 1 {tbl} PO DAILY March 23, 2021 1:00am Problems Active Problems Problem Classification Problem Date Documented Date Episodic/Chronic Chronic obstructive pulmonary disease and bronchiectasis (6 sources) Chronic obstructive lung disease; Translations: [Chronic obstructive pulmonary disease, unspecified] Onset: 11-23-2016 11-23-2016 Chronic Coronary atherosclerosis and other heart disease (7 sources) Atherosclerotic heart disease of [place] coronary artery without angina pectoris; Translations: [Coronary atherosclerosis] Onset: 05-05-2017 Chronic Diabetes mellitus without complication (4 sources) Type 2 diabetes mellitus; Translations: [Type 2 diabetes mellitus without complications] 03-23-2021 Chronic Disorders of lipid metabolism (5 sources) Mixed hyperlipidemia; Translations: [Mixed hyperlipidemia] Chronic Essential hypertension (8 sources) Hypertensive disorder; Translations: [Essential (primary) hypertension] Onset: 11-23-2016 11-23-2016 Chronic Other and ill-defined heart disease (2 sources) Heart disease; Translations: [Heart disease, unspecified] Onset: 11-23-2016 11-23-2016 Chronic Other lower respiratory disease (4 sources) Dyspnea on exertion; Translations: [Dyspnea, unspecified] 04-15-2021 Episodic Regional enteritis and ulcerative colitis (1 source) Ulcerative colitis, unspecified, without complications; Translations: [Ulcerative colitis, unspecified, without complications] Onset: 11-01-2024 Chronic Unclassified (1 source) Unknown / UNK(Unknown) Onset: 05-05-2017 Past or Other Problems Problem Classification Problem Date Documented Da te Episodic/Chronic Coronary atherosclerosis and other heart disease (5 sources) Stented coronary artery; Translations: [Presence of coronary angioplasty implant and graft] Onset: 11-19-2003 Episodic Comment on above: PCI/Stent to distal RCA 11/20/03 @ [facility] Fever of unknown origin (1 source) Fever, unspecified; Translations: [Fever, unspecified] Onset: 03-21-2024 Episodic Nonmalignant breast conditions (2 sources) Breast lump; Translations: [Unspecified lump in breast] Onset: 11-23-2016 11-28-2016 Episodic Other circulatory disease (2 sources) History of placement of stent for coronary artery disease; Translations: [Presence of other cardiac implants and grafts] Onset: 11-23-2016 11-23-2016 Episodic Pneumonia (except that caused by tuberculosis or sexually transmitted disease) (2 sources) Pneumonia; Translations: [Pneumonia, unspecified organism] Onset: 03-31-2024 02-26-2024 Episodic Results Test Name Value Interpretation Reference Range Facility Prealbumin 31851me Prealbumin [Mass/Vol] 24 mg/dL Normal [facility] Comment on above: Result Comment: Perf ormed at: - [facility] [address] [id number] Butcher Helper: Castro Junior PhD, Phone: [phone] Performed By: #### L [id number], L503.6005, L300.4310, L300.3900, L500.4050, M200.1000, L100.0100 #### [facility] [address] [place], [address] Absolute lymphocyte countOrd ered By: Héctor Bustos on 10-28-2024 Lymphocytes Auto (Unsp spec) [#/Vol] 2.54 10*3/uL 0.83-4.51 [facility] Absolute neutrophil countOrd ered By: Héctor Bustos on 10-28-2024 Neutrophils (Bld) [#/Vol] 4.6 10*3/uL 2.0-7.7 [facility] Anion gap in Serum or Plasma Ordered By: Héctor Bustos on 10-28-2024 Anion gap [Moles/Vol] 11 mmol/L 5-15 [facility] Automated lymphocyte count a s percentage of total leukocytesOrdered By: Héctor Bustos on 10-28-2024 Lymphocytes/100 WBC Auto (Unsp spec) 32.5 % 19-41 [facility] BUN/creatinine ratioOrdered By: Héctor Bustos on 08-11-2025 Urea nitrogen/Creatinine [Mass ratio] 14.8 mg/mg 10-20 [facility] Basophil percentageOrdered B y: Héctor Bustos on 10-28-2024 Basophils/100 WBC (Bld) 0.4 % 0-1 [facility] Bilirubin, totalOrdered By: Héctor Bustos on 10-28-2024 Bilirubin [Mass/Vol] 0.27 mg/dL 0.00-1.30 [facility] CBC W/Diff, Automatedon 10-18 Absolute Lymph 2.54 X10 3/uL Normal 0.83-4.51 [facility] Comment on above: Order Comment: 'TROP ' Serial specimen #1, #2 or #3: 1 Performed By: #### L [id number], [id number], L300.4310, L300.3900, L500.4050, M200.1000, L100.0100 #### [facility] [address] [place], [address] Absolute Neut 4.6 X10 3/uL Normal 2.0-7.7 [facility] Comment on above: Order Comment: 'TROP ' Serial specimen #1, #2 or #3: 1 Performed By: #### L [id number], [id number], L300.4310, L300.3900, L500.4050, M200.1000, L100.0100 #### [facility] [address] [place], [address] Basophils/100 WBC (Bld) 0.4 % Normal 0-1 [facility] Comment on above: Order Comment: 'TROP ' Serial specimen #1, #2 or #3: 1 Performed By: #### L 501.4020, [id number], L300.4310, L300.3900, L500.4050, M200.1000, L100.0100 #### [facility] [address] [place], [address] Eosinophils/100 WBC (Bld) 2.0 % Normal 0-5 [facility] Comment on above: Order Comment: 'TROP ' Serial specimen #1, #2 or #3: 1 Performed By: #### L 501.4020, [id number], L300.4310, L300.3900, L500.4050, M200.1000, L100.0100 #### [facility] [address] [place], [address] Erythrocyte distribution width (RBC) [Ratio] 13.1 % Normal 11.6-14.6 [facility] Comment on above: Order Comment: 'TROP ' Serial specimen #1, #2 or #3: 1 Performed By: #### L 501.4020, L503.6005, L300.4310, L300.3900, L500.4050, M200.1000, L100.0100 #### [facility] [address] [place], [address] Hematocrit (Bld) [Volume fraction] 44.6 % Normal 40-54 [facility] Comment on above: Order Comment: 'TROP ' Serial specimen #1, #2 or #3: 1 Performed By: #### L 501.4020, L503.6005, L300.4310, L300.3900, L500.4050, M200.1000, L100.0100 #### [facility] [address] [place], [address] Hemoglobin (Bld) [Mass/Vol] 14.6 g/dL Normal 13.0-16.5 [facility] Comment on above: Order Comment: 'TROP ' Serial specimen #1, #2 or #3: 1 Performed By: #### L 501.4020, L503.6005, L300.4310, L300.3900, L500.4050, M200.1000, L100.0100 #### [facility] [address] [place], [address] IG% 0.300 Normal 0.0-0.9 [facility] Comment on above: Order Comment: 'TROP ' Serial specimen #1, #2 or #3: 1 Result Comment: IG% - Immature Granulocytes (promyelocytes, myelocytes and metamyelocytes) > 1% indicates that a LEFT SHIFT is Present. Performed By: #### L 501.4020, L503.6005, L300.4310, L300.3900, L500.4050, M200.1000, L100.0100 #### [facility] [address] [place], [address] Lymphocytes/100 WBC (Bld) 32.5 % Normal 19-41 [facility] Comment on above: Order Comment: 'TROP ' Serial specimen #1, #2 or #3: 1 Performed By: #### L 501.4020, [id number], L300.4310, L300.3900, L500.4050, M200.1000, L100.0100 #### [facility] [address] [place], [address] MCH (RBC) [Entitic mass] 32.2 pg High 27.0-32.0 [facility] Comment on above: Order Comment: 'TROP ' Serial specimen #1, #2 or #3: 1 Performed By: #### L 501.4020, [id number], L300.4310, L300.3900, L500.4050, M200.1000, L100.0100 #### [facility] [address] [place], [address] MCHC (RBC) [Mass/Vol] 32.7 g/dL Normal 32-36 [facility] Comment on above: Order Comment: 'TROP ' Serial specimen #1, #2 or #3: 1 Performed By: #### L 501.4020, [id number], L300.4310, L300.3900, L500.4050, M200.1000, L100.0100 #### [facility] [address] [place], [address] MCV (RBC) [Entitic vol] 98.2 fL High 80-94 [facility] Comment on above: Order Comment: 'TROP ' Serial specimen #1, #2 or #3: 1 Performed By: #### L 501.4020, [id number], L300.4310, L300.3900, L500.4050, M200.1000, L100.0100 #### [facility] [address] [place], [address] Monocytes/100 WBC (Bld) 5.4 % Normal 0-10 [facility] Comment on above: Order Comment: 'TROP ' Serial specimen #1, #2 or #3: 1 Performed By: #### L 501.4020, L503.6005, L300.4310, L300.3900, L500.4050, M200.1000, L100.0100 #### [facility] [address] [place], [address] Neutrophils/100 WBC (Bld) 59.4 % Normal 47-70 [facility] Comment on above: Order Comment: 'TROP ' Serial specimen #1, #2 or #3: 1 Performed By: #### L 501.4020, L503.6005, L300.4310, L300.3900, L500.4050, M200.1000, L100.0100 #### [facility] [address] [place], [address] Nucleated RBC (Bld) [#/Vol] 0 10*3/uL Normal 0-5 [facility] Comment on above: Order Comment: 'TROP ' Serial specimen #1, #2 or #3: 1 Performed By: #### L 501.4020, L503.6005, L300.4310, L300.3900, L500.4050, M200.1000, L100.0100 #### [facility] [address] [place], [address] Platelet mean volume (Bld) [Entitic vol] 10.7 fL Normal 6.2-12.0 [facility] Comment on above: Order Comment: 'TROP ' Serial specimen #1, #2 or #3: 1 Performed By: #### L 501.4020, L503.6005, L300.4310, L300.3900, L500.4050, M200.1000, L100.0100 #### [facility] [address] [place], [address] Platelets (Bld) [#/Vol] 206 10*3/uL Normal 150-450 [facility] Comment on above: Order Comment: 'TROP ' Serial specimen #1, #2 or #3: 1 Performed By: #### L 501.4020, L503.6005, L300.4310, L300.3900, L500.4050, M200.1000, L100.0100 #### [facility] [address] [place], [address] RBC (Bld) [#/Vol] 4.54 10*6/uL Low 4.6-6.2 [facility] Comment on above: Order Comment: 'TROP ' Serial specimen #1, #2 or #3: 1 Performed By: #### L 501.4020, L503.6005, L300.4310, L300.3900, L500.4050, M200.1000, L100.0100 #### [facility] [address] [place], [address] RDW SD 46.5 fl High 35.1-43.9 [facility] Comment on above: Order Comment: 'TROP ' Serial specimen #1, #2 or #3: 1 Performed By: #### L 501.4020, L503.6005, L300.4310, L300.3900, L500.4050, M200.1000, L100.0100 #### [facility] [address] [place], [address] WBC (Bld) [#/Vol] 7.8 10*3/uL Normal 4.4-11.0 [facility] Comment on above: Order Comment: 'TROP ' Serial specimen #1, #2 or #3: 1 Performed By: #### L 501.4020, L503.6005, L300.4310, L300.3900, L500.4050, M200.1000, L100.0100 #### [facility] [address] [place], [address] Carbon dioxide, total [Moles /volume] in Central venous bloodOrdered By: Héctor Bustos on 10-28-2024 CO2 [Moles/Vol] 28.4 mmol/L 21.0-32.0 [facility] Chloride assayOrdered By: Soto Bustos on 10-28-2024 Chloride [Moles/Vol] 100 mmol/L 98-108 [facility] Comprehensive Metabolic Prof ilon 10-28-2024 Albumin [Mass/Vol] 4.3 g/dL Normal 3.4-4.8 [facility] Comment on above: Order Comment: 'TROP ' Serial specimen #1, #2 or #3: 1 Performed By: #### L 501.4020, L503.6005, L300.4310, L300.3900, L500.4050, M200.1000, L100.0100 #### [facility] [address] [place], [address] Albumin/Globulin [Mass ratio] 1.5 {ratio} Normal 0.9-2.4 [facility] Comment on above: Order Comment: 'TROP ' Serial specimen #1, #2 or #3: 1 Performed By: #### L 501.4020, L503.6005, L300.4310, L300.3900, L500.4050, M200.1000, L100.0100 #### [facility] [address] [place], [address] ALK PHOS 70 U/L Normal 40-129 [facility] Comment on above: Order Comment: 'TROP ' Serial specimen #1, #2 or #3: 1 Performed By: #### L 501.4020, L503.6005, L300.4310, L300.3900, L500.4050, M200.1000, L100.0100 #### [facility] [address] [place], [address] ALT [Catalytic activity/Vol] 13 U/L Normal <=46 [facility] Comment on above: Order Comment: 'TROP ' Serial specimen #1, #2 or #3: 1 Performed By: #### L 501.4020, L503.6005, L300.4310, L300.3900, L500.4050, M200.1000, L100.0100 #### [facility] [address], [address] AST [Catalytic activity/Vol] 19 U/L Normal <=37 [facility] Comment on above: Order Comment: 'TROP ' Serial specimen #1, #2 or #3: 1 Performed By: #### L 501.4020, L503.6005, L300.4310, L300.3900, L500.4050, M200.1000, L100.0100 #### [facility] [address] [place], [address] Bilirubin [Mass/Vol] 0.27 mg/dL Normal 0.00-1.30 [facility] Comment on above: Order Comment: 'TROP ' Serial specimen #1, #2 or #3: 1 Performed By: #### L 501.4020, L503.6005, L300.4310, L300.3900, L500.4050, M200.1000, L100.0100 #### [facility] [address] [place], [address] BUN/CRE 14.8 RATIO Normal 10-20 [facility] Comment on above: Order Comment: 'TROP ' Serial specimen #1, #2 or #3: 1 Performed By: #### L 501.4020, L503.6005, L300.4310, L300.3900, L500.4050, M200.1000, L100.0100 #### [facility] [address] [place], [address] Calcium [Mass/Vol] 9.2 mg/dL Normal 7.6-11.0 [facility] Comment on above: Order Comment: 'TROP ' Serial specimen #1, #2 or #3: 1 Performed By: #### L 501.4020, L503.6005, L300.4310, L300.3900, L500.4050, M200.1000, L100.0100 #### [facility] [address] [place], [address] Chloride [Moles/Vol] 100 mmol/L Normal 98-108 [facility] Comment on above: Order Comment: 'TROP ' Serial specimen #1, #2 or #3: 1 Performed By: #### L 501.4020, L503.6005, L300.4310, L300.3900, L500.4050, M200.1000, L100.0100 #### [facility] [address] [place], [address] CO2 [Moles/Vol] 28.4 mmol/L Normal 21.0-32.0 [facility] Comment on above: Order Comment: 'TROP ' Serial specimen #1, #2 or #3: 1 Performed By: #### L 501.4020, L503.6005, L300.4310, L300.3900, L500.4050, M200.1000, L100.0100 #### [facility] [address] [place], [address] Creatinine [Mass/Vol] 0.93 mg/dL Normal 0.70-1.20 [facility] Comment on above: Order Comment: 'TROP ' Serial specimen #1, #2 or #3: 1 Performed By: #### L 501.4020, L503.6005, L300.4310, L300.3900, L500.4050, M200.1000, L100.0100 #### [facility] [address] [place], [address] GAP 11 Normal 5-15 [facility] Comment on above: Order Comment: 'TROP ' Serial specimen #1, #2 or #3: 1 Performed By: #### L 501.4020, L503.6005, L300.4310, L300.3900, L500.4050, M200.1000, L100.0100 #### [facility] [address] [place], [address] GFR/1.73 sq M.predicted among non-blacks MDRD (S/P/Bld) [Vol rate/Area] 84 mL/min/{1.73_m2} Normal >60 [facility] Comment on above: Order Comment: 'TROP ' Serial specimen #1, #2 or #3: 1 Result Comment: mL/m in/1.73m2 CKD-EPI Creatinine Equation (2020) Performed By: #### L 501.4020, L503.6005, L300.4310, L300.3900, L500.4050, M200.1000, L100.0100 #### [facility] [address] [place], [address] Globulin (S) [Mass/Vol] 2.8 g/dL Normal 2.2-4.2 [facility] Comment on above: Order Comment: 'TROP ' Serial specimen #1, #2 or #3: 1 Performed By: #### L 501.4020, L503.6005, L300.4310, L300.3900, L500.4050, M200.1000, L100.0100 #### [facility] [address] [place], [address] Glucose [Mass/Vol] 252 mg/dL High 70-99 [facility] Comment on above: Order Comment: 'TROP ' Serial specimen #1, #2 or #3: 1 Performed By: #### L 501.4020, L503.6005, L300.4310, L300.3900, L500.4050, M200.1000, L100.0100 #### [facility] [address], [address] Potassium [Moles/Vol] 4.6 mmol/L Normal 3.3-5.1 [facility] Comment on above: Order Comment: 'TROP ' Serial specimen #1, #2 or #3: 1 Performed By: #### L 501.4020, L503.6005, L300.4310, L300.3900, L500.4050, M200.1000, L100.0100 #### [facility] [address] [place], [address] Sodium [Moles/Vol] 139 mmol/L Normal 133-145 [facility] Comment on above: Order Comment: 'TROP ' Serial specimen #1, #2 or #3: 1 Performed By: #### L 501.4020, L503.6005, L300.4310, L300.3900, L500.4050, M200.1000, L100.0100 #### [facility] [address], [address] T PROT 7.1 g/dL Normal 5.9-8.4 [facility] Comment on above: Order Comment: 'TROP ' Serial specimen #1, #2 or #3: 1 Performed By: #### L 501.4020, L503.6005, L300.4310, L300.3900, L500.4050, M200.1000, L100.0100 #### [facility] [address] [place], [address] Urea nitrogen [Mass/Vol] 14 mg/dL Normal 4-19 [facility] Comment on above: Order Comment: 'TROP ' Serial specimen #1, #2 or #3: 1 Performed By: #### L 501.4020, L503.6005, L300.4310, L300.3900, L500.4050, M200.1000, L100.0100 #### [facility] [place], [address] Eosinophil percentageOrdered By: Héctor Bustos on 10-28-2024 Eosinophils/100 WBC (Bld) 2.0 % 0-5 [facility] Erythrocyte distribution wid th ratioOrdered By: Héctor Bustos on 10-28-2024 Erythrocyte distribution width (RBC) [Ratio] 13.1 % 11.6-14.6 [facility] Erythrocyte distribution wid th standard deviationOrdered By: Héctor Bustos on 10-28-2024 Erythrocyte distribution width (RBC) [Ratio] 46.5 fl High 35.1-43.9 [facility] Glomerular filtration rate ( GFR) estimation/1.73 sq m using serum, plasma, or whole bOrdered By: Héctor Bustos on 10-28-2024 GFR/1.73 sq M.predicted among non-blacks MDRD (S/P/Bld) [Vol rate/Area] 84 mL/min/{1.73_m2} >60 [facility] Comment on above: mL/min/1.73m2 CKD-EP I Creatinine Equation (2020) Hematocrit Auto (Bld) [Volum e fraction]Ordered By: Héctor Bustos on 10-28-2024 Hematocrit (Bld) [Volume fraction] 44.6 % 40-54 [facility] Hemoglobin measurementOrdere d By: Héctor Bustos on 10-28-2024 Hemoglobin (Bld) [Mass/Vol] 14.6 g/dL 13.0-16.5 [facility] Immature granulocytes/100 WB C Auto (Bld)Ordered By: Héctor Bustos on 10-28-2024 Immature granulocytes/100 WBC (Bld) 0.300 % 0.0-0.9 [facility] Comment on above: IG% - Immature Granu locytes (promyelocytes, myelocytes and metamyelocytes) > 1% indicates that a LEFT SHIFT is Present. Laboratory - Chemistry and C hemistry - challengeOrdered By: Héctor Bustos on 10-28-2024 AST [Catalytic activity/Vol] 19 U/L <38 [facility] MCV (mean corpuscular volume ) determinationOrdered By: Héctor Bustos on 10-28-2024 MCV (RBC) [Entitic vol] 98.2 fL High 80-94 [facility] Mean corpuscular hemoglobin (MCH) determinationOrdered By: Héctor Bustos on 10-28-2024 MCH (RBC) [Entitic mass] 32.2 pg High 27.0-32.0 [facility] Mean corpuscular hemoglobin concentration (MCHC) determinationOrdered By: Héctor Bustos on 10-28-2024 MCHC (RBC) [Mass/Vol] 32.7 g/dL 32-36 [facility] Mean platelet volume determi nationOrdered By: Hétcor Bustos on 10-28-2024 Platelet mean volume (Bld) [Entitic vol] 10.7 fL 6.2-12.0 [facility] Microalb:Creat Ratio,Random URon 10-28-2024 Creatinine [Mass/Vol] 113.00 mg/dL Normal 39.00- 259. 00 [facility] Comment on above: Order Comment: 'TROP ' Serial specimen #1, #2 or #3: 1 Performed By: #### L 501.4020, L503.6005, L300.4310, L300.3900, L500.4050, M200.1000, L100.0100 #### [facility] [address] [place], [address] MALB:CREAT 12.1 mg/g CRE Normal <30 mg/g CRE [facility] Comment on above: Order Comment: 'TROP ' Serial specimen #1, #2 or #3: 1 Performed By: #### L 501.4020, L503.6005, L300.4310, L300.3900, L500.4050, M200.1000, L100.0100 #### [facility] [address] [place], [address] MICROALBUMIN,UR 13.7 mg/L Normal <20 mg/L [facility] Comment on above: Order Comment: 'TROP ' Serial specimen #1, #2 or #3: 1 Performed By: #### L 501.4020, L503.6005, L300.4310, L300.3900, L500.4050, M200.1000, L100.0100 #### [facility] [address] [place], [address] Monocyte percentageOrdered B y: Héctor Bustos on 10-28-2024 Monocytes/100 WBC (Bld) 5.4 % 0-10 [facility] Neutrophil percentageOrdered By: Héctor Bustos on 10-28-2024 Neutrophils/100 WBC (Bld) 59.4 % 47-70 [facility] Nucleated red blood cell per centageOrdered By: Héctor Bustos on 10-28-2024 Nucleated RBC/100 WBC (Bld) [Ratio] 0 % 0-5 [facility] Platelet countOrdered By: Soto Bustos on 10-28-2024 Platelets (Bld) [#/Vol] 206 10*3/uL 150-450 [facility] Potassium measurement (mass/ volume)Ordered By: Héctro Bustos on 10-28-2024 Potassium (Unsp spec) [Mass/Vol] 4.6 mmol/L 3.3-5.1 [facility] RBC Auto (Bld) [#/Vol]Ordere d By: Héctor Bustos on 10-28-2024 RBC (Bld) [#/Vol] 4.54 10*6/uL Low 4.6-6.2 [facility] Random urine creatinine juan urement (mass/volume)Ordered By: Héctor Bustos on 10-28-2024 Creatinine Unsp time (U) [Mass/Vol] 113.00 mg/dL 39.00-259. 00 [facility] Serum creatinine measurement (mass/volume)Ordered By: Héctor Bustos on 10-28-2024 Creatinine [Mass/Vol] 0.93 mg/dL 0.70-1.20 [facility] Serum globulin measurementOr dered By: Héctor Bustos on 10-28-2024 Globulin (S) [Mass/Vol] 2.8 g/dL 2.2-4.2 [facility] Serum glucose measurement (m ass/volume)Ordered By: Héctor Bustos on 10-28-2024 Glucose [Mass/Vol] 252 mg/dL High 70-99 [facility] Serum or plasma alanine rollins otransferase (ALT) measurementOrdered By: Héctor Bustos on 10-28-2024 ALT [Catalytic activity/Vol] 13 U/L <47 [facility] Serum or plasma albumin juan urement (mass/volume)Ordered By: Héctor Bustos on 10-28-2024 Albumin [Mass/Vol] 4.3 g/dL 3.4-4.8 [facility] Serum or plasma albumin/glob ulin mass ratioOrdered By: Héctor Bustos on 10-28-2024 Albumin/Globulin [Mass ratio] 1.5 {ratio} 0.9-2.4 [facility] Serum or plasma alkaline syed sphatase measurementOrdered By: Héctor Bustos on 10-28-2024 ALP [Catalytic activity/Vol] 70 U/L 40-129 [facility] Serum or plasma calcium juan urement (mass/volume)Ordered By: Héctor Bustos on 10-28-2024 Calcium [Mass/Vol] 9.2 mg/dL 7.6-11.0 [facility] Serum or plasma urea nitroge n measurement (mass/volume)Ordered By: Héctor Bustos on 10-28-2024 Urea nitrogen [Mass/Vol] 14 mg/dL 4-19 [facility] Serum prealbumin measurement by immunoassayOrdered By: Héctor Bustos on 10-28-2024 Prealbumin [Mass/Vol] 24 mg/dL 9-32 [facility] Comment on above: Performed at: [place] [id number] Director: Castro Junior PhD, Phone: [phone] Sodium levelOrdered By: Héctor Bustos on 10-28-2024 Sodium [Moles/Vol] 139 mmol/L 133-145 [facility] Total proteinOrdered By: Arely Bustos on 10-28-2024 Protein [Mass/Vol] 7.1 g/dL 5.9-8.4 [facility] Urine albumin measurement wi detection limit of 20 mg/L or less (mass/volume)Ordered By: Héctor Bustos on 10-28-2024 Albumin DL <= 20 mg/L (U) [Mass/Vol] 13.7 mg/L <20 mg/L [facility] Vitamin D,25 Hydroxyon 10-28 Vitamin D 25-OH 27.2 ng/mL Low 30-100 [facility] Comment on above: Order Comment: 'TROP ' Serial specimen #1, #2 or #3: 1 Result Comment: Teresa min D Status Deficiency: <20 ng/mL (50nmol/L) Insufficiency: 20-30 ng/mL (50-75 nmol/L) Sufficiency: 30-100 ng/mL (75-250 nmol/L) Toxicity: >100 ng/mL (>250 nmol/L) Performed By: #### L 501.4020, L503.6005, L300.4310, L300.3900, L500.4050, M200.1000, L100.0100 #### [facility] [address] [place], [address] White blood cell (WBC) count Ordered By: Héctor Bustos on 10-28-2024 WBC (Bld) [#/Vol] 7.8 10*3/uL 4.4-11.0 [facility] CBC W/Diff, Automatedon 12- Absolute Lymph 2.48 X10 3/uL Normal 0.83-4.51 [facility] Comment on above: Order Comment: 'TROP ' Serial specimen #1, #2 or #3: 1 Performed By: #### L 501.4020, L503.6005, L300.4310, L300.3900, L500.4050, M200.1000, L100.0100 #### [facility] [address] [place], [address] Absolute Neut 8.8 X10 3/uL High 2.0-7.7 [facility] Comment on above: Order Comment: 'TROP ' Serial specimen #1, #2 or #3: 1 Performed By: #### L 501.4020, L503.6005, L300.4310, L300.3900, L500.4050, M200.1000, L100.0100 #### [facility] [address] [place], [address] Basophils/100 WBC (Bld) 0.5 % Normal 0-1 [facility] Comment on above: Order Comment: 'TROP ' Serial specimen #1, #2 or #3: 1 Performed By: #### L 501.4020, L503.6005, L300.4310, L300.3900, L500.4050, M200.1000, L100.0100 #### [facility] [address] [place], [address] Eosinophils/100 WBC (Bld) 1.4 % Normal 0-5 [facility] Comment on above: Order Comment: 'TROP ' Serial specimen #1, #2 or #3: 1 Performed By: #### L 501.4020, L503.6005, L300.4310, L300.3900, L500.4050, M200.1000, L100.0100 #### [facility] [address] [place], [address] Erythrocyte distribution width (RBC) [Ratio] 13.5 % Normal 11.6-14.6 [facility] Comment on above: Order Comment: 'TROP ' Serial specimen #1, #2 or #3: 1 Performed By: #### L 501.4020, L503.6005, L300.4310, L300.3900, L500.4050, M200.1000, L100.0100 #### [facility] [address] [place], [address] Hematocrit (Bld) [Volume fraction] 43.4 % Normal 40-54 [facility] Comment on above: Order Comment: 'TROP ' Serial specimen #1, #2 or #3: 1 Performed By: #### L 501.4020, L503.6005, L300.4310, L300.3900, L500.4050, M200.1000, L100.0100 #### [facility] [address] [place], [address] Hemoglobin (Bld) [Mass/Vol] 13.8 g/dL Normal 13.0-16.5 [facility] Comment on above: Order Comment: 'TROP ' Serial specimen #1, #2 or #3: 1 Performed By: #### L 501.4020, L503.6005, L300.4310, L300.3900, L500.4050, M200.1000, L100.0100 #### [facility] [address] [place], [address] IG% 1.100 High 0.0-0.9 [facility] Comment on above: Order Comment: 'TROP ' Serial specimen #1, #2 or #3: 1 Result Comment: IG% - Immature Granulocytes (promyelocytes, myelocytes and metamyelocytes) > 1% indicates that a LEFT SHIFT is Present. Performed By: #### L 501.4020, L503.6005, L300.4310, L300.3900, L500.4050, M200.1000, L100.0100 #### [facility] [address] [place], [address] Lymphocytes/100 WBC (Bld) 20.3 % Normal 19-41 [facility] Comment on above: Order Comment: 'TROP ' Serial specimen #1, #2 or #3: 1 Performed By: #### L 501.4020, L503.6005, L300.4310, L300.3900, L500.4050, M200.1000, L100.0100 #### [facility] [address] [place], [address] MCH (RBC) [Entitic mass] 30.5 pg Normal 27.0-32.0 [facility] Comment on above: Order Comment: 'TROP ' Serial specimen #1, #2 or #3: 1 Performed By: #### L 501.4020, L503.6005, L300.4310, L300.3900, L500.4050, M200.1000, L100.0100 #### [facility] [address] [place], [address] MCHC (RBC) [Mass/Vol] 31.8 g/dL Low 32-36 [facility] Comment on above: Order Comment: 'TROP ' Serial specimen #1, #2 or #3: 1 Performed By: #### L 501.4020, L503.6005, L300.4310, L300.3900, L500.4050, M200.1000, L100.0100 #### [facility] [address] [place], [address] MCV (RBC) [Entitic vol] 95.8 fL High 80-94 [facility] Comment on above: Order Comment: 'TROP ' Serial specimen #1, #2 or #3: 1 Performed By: #### L 501.4020, L503.6005, L300.4310, L300.3900, L500.4050, M200.1000, L100.0100 #### [facility] [address] [place], [address] Monocytes/100 WBC (Bld) 4.4 % Normal 0-10 [facility] Comment on above: Order Comment: 'TROP ' Serial specimen #1, #2 or #3: 1 Performed By: #### L 501.4020, L503.6005, L300.4310, L300.3900, L500.4050, M200.1000, L100.0100 #### [facility] [address] [place], [address] Neutrophils/100 WBC (Bld) 72.3 % High 47-70 [facility] Comment on above: Order Comment: 'TROP ' Serial specimen #1, #2 or #3: 1 Performed By: #### L 501.4020, L503.6005, L300.4310, L300.3900, L500.4050, M200.1000, L100.0100 #### [facility] [address] [place], [address] Nucleated RBC (Bld) [#/Vol] 0 10*3/uL Normal 0-5 [facility] Comment on above: Order Comment: 'TROP ' Serial specimen #1, #2 or #3: 1 Performed By: #### L 501.4020, L503.6005, L300.4310, L300.3900, L500.4050, M200.1000, L100.0100 #### [facility] [address] [place], [address] Platelet mean volume (Bld) [Entitic vol] 9.3 fL Normal 6.2-12.0 [facility] Comment on above: Order Comment: 'TROP ' Serial specimen #1, #2 or #3: 1 Performed By: #### L 501.4020, L503.6005, L300.4310, L300.3900, L500.4050, M200.1000, L100.0100 #### [facility] [address] [place], [address] Platelets (Bld) [#/Vol] 301 10*3/uL Normal 150-450 [facility] Comment on above: Order Comment: 'TROP ' Serial specimen #1, #2 or #3: 1 Performed By: #### L 501.4020, L503.6005, L300.4310, L300.3900, L500.4050, M200.1000, L100.0100 #### [facility] [address] [place], [address] RBC (Bld) [#/Vol] 4.53 10*6/uL Low 4.6-6.2 [facility] Comment on above: Order Comment: 'TROP ' Serial specimen #1, #2 or #3: 1 Performed By: #### L 501.4020, L503.6005, L300.4310, L300.3900, L500.4050, M200.1000, L100.0100 #### [facility] [address] [place], [address] RDW SD 48.0 fl High 35.1-43.9 [facility] Comment on above: Order Comment: 'TROP ' Serial specimen #1, #2 or #3: 1 Performed By: #### L 501.4020, L503.6005, L300.4310, L300.3900, L500.4050, M200.1000, L100.0100 #### [facility] [address] [place], [address] WBC (Bld) [#/Vol] 12.2 10*3/uL High 4.4-11.0 [facility] Comment on above: Order Comment: 'TROP ' Serial specimen #1, #2 or #3: 1 Performed By: #### L 501.4020, L503.6005, L300.4310, L300.3900, L500.4050, M200.1000, L100.0100 #### [facility] [address] [place], [address] Chest PA and Lateralon 02-27 Chest PA and Lateral [facility] [address], [place] [id number] (186) Chest PA and Lateral MR#: [id number] Acct: [id number] Name: ANDREW GUARDADO Rep #: [id number] : 1945 M 78 From: Filemon howell MD PCP: Dr. Shelli Romo MD Status: [facility] Study: Chest PA and Lateral Date of Exam: 02/28/24 Exam# [id number] Ordering Dr: Get Murillo MD :[id number] STUDY: X-RAY CHEST REASON FOR EXAM: Male, 78 years old. Right-sided chest pain. TECHNIQUE: PA and lateral views of the chest. COMPARISON: Comparison is made with prior study dated February 18, 2024. FINDINGS: Progressive right lower lobe infiltrate with a small right pleural effusion. Radiographic follow-up recommended. Normal size heart. Normal mediastinum and josh. Normal visualized pulmonary arteries. There is atherosclerotic calcification of the aortic arch with tortuosity. There are degenerative changes of the visualized thoracic spine. Normal visualized ribs, clavicles, and shoulders. There is no demonstrated abnormality of the visualized soft tissue structures of the upper abdomen. RAD/Chest PA and Lateral IMPRESSION: Progressive right lower lobe infiltrate a small right pleural effusion. Follow-up recommended. Electronically Signed: Filemon Reyes MD at 15:41 EST Reading Location ID and State: [address] [place] [address] , Service support , CC: Dr. Shelli Romo MD; Dr. Get Murillo MD Immunologist: Signed Normal [facility] Comprehensive Metabolic Prof akon 02-28-2024 Albumin [Mass/Vol] 3.0 g/dL Low 3.2-5.0 [facility] Comment on above: Order Comment: 'TROP ' Serial specimen #1, #2 or #3: 1 Performed By: #### L 501.4020, L503.6005, L300.4310, L300.3900, L500.4050, M200.1000, L100.0100 #### [facility] [address] [place], [address] Albumin/Globulin [Mass ratio] 0.7 {ratio} Low 0.9-2.4 [facility] Comment on above: Order Comment: 'TROP ' Serial specimen #1, #2 or #3: 1 Performed By: #### L 501.4020, L503.6005, L300.4310, L300.3900, L500.4050, M200.1000, L100.0100 #### [facility] [address] [place], [address] ALK P 63 U/L Normal 45-117 [facility] Comment on above: Order Comment: 'TROP ' Serial specimen #1, #2 or #3: 1 Performed By: #### L 501.4020, L503.6005, L300.4310, L300.3900, L500.4050, M200.1000, L100.0100 #### [facility] [address] [place], [address] ALT [Catalytic activity/Vol] 25 U/L Normal 16-61 [facility] Comment on above: Order Comment: 'TROP ' Serial specimen #1, #2 or #3: 1 Performed By: #### L 501.4020, L503.6005, L300.4310, L300.3900, L500.4050, M200.1000, L100.0100 #### [facility] [address] [place], [address] AST [Catalytic activity/Vol] 26 U/L Normal 15-37 [facility] Comment on above: Order Comment: 'TROP ' Serial specimen #1, #2 or #3: 1 Performed By: #### L 501.4020, L503.6005, L300.4310, L300.3900, L500.4050, M200.1000, L100.0100 #### [facility] [address] [place], [address] Bilirubin [Mass/Vol] 0.30 mg/dL Normal 0.20-1.00 [facility] Comment on above: Order Comment: 'TROP ' Serial specimen #1, #2 or #3: 1 Result Comment: For patients on eltrombopag therapy, use of Dimension [place] TBIL is not recommended. Performed By: #### L 501.4020, L503.6005, L300.4310, L300.3900, L500.4050, M200.1000, L100.0100 #### [facility] [address] [place], [address] BUN/CRE 15.1 RATIO Normal 10-20 [facility] Comment on above: Order Comment: 'TROP ' Serial specimen #1, #2 or #3: 1 Performed By: #### L 501.4020, L503.6005, L300.4310, L300.3900, L500.4050, M200.1000, L100.0100 #### [facility] [address] [place], [address] CA,Total 9.5 mg/dL Normal 8.5-10.1 [facility] Comment on above: Order Comment: 'TROP ' Serial specimen #1, #2 or #3: 1 Performed By: #### L 501.4020, L503.6005, L300.4310, L300.3900, L500.4050, M200.1000, L100.0100 #### [facility] [address] [place], [address] Chloride [Moles/Vol] 103 mmol/L Normal 98-107 [facility] Comment on above: Order Comment: 'TROP ' Serial specimen #1, #2 or #3: 1 Performed By: #### L 501.4020, L503.6005, L300.4310, L300.3900, L500.4050, M200.1000, L100.0100 #### [facility] [address] [place], [address] CO2 [Moles/Vol] 33.0 mmol/L High 21.0-32.0 [facility] Comment on above: Order Comment: 'TROP ' Serial specimen #1, #2 or #3: 1 Performed By: #### L 501.4020, L503.6005, L300.4310, L300.3900, L500.4050, M200.1000, L100.0100 #### [facility] [address] [place], [address] Creatinine [Mass/Vol] 0.79 mg/dL Normal 0.70-1.30 [facility] Comment on above: Order Comment: 'TROP ' Serial specimen #1, #2 or #3: 1 Result Comment: The validity of the calculated GFR GFRAA in patients over 70 years has not been determined. Clinical correlation is essential. Performed By: #### L 501.4020, L503.6005, L300.4310, L300.3900, L500.4050, M200.1000, L100.0100 #### [facility] [address] [place], [address] EST GFR - AA 121 mL/min Normal >60 [facility] Comment on above: Order Comment: 'TROP ' Serial specimen #1, #2 or #3: 1 Result Comment: Afri can [place] GFR Calc Performed By: #### L 501.4020, L503.6005, L300.4310, L300.3900, L500.4050, M200.1000, L100.0100 #### [facility] [address] [place], [address] GAP 5 Normal 5-15 [facility] Comment on above: Order Comment: 'TROP ' Serial specimen #1, #2 or #3: 1 Performed By: #### L 501.4020, L503.6005, L300.4310, L300.3900, L500.4050, M200.1000, L100.0100 #### [facility] [address] [place], [address] GFR/1.73 sq M.predicted among non-blacks MDRD (S/P/Bld) [Vol rate/Area] 100 mL/min/{1.73_m2} Normal >60 [facility] Comment on above: Order Comment: 'TROP ' Serial specimen #1, #2 or #3: 1 Result Comment: Non- GFR Calc Performed By: #### L 501.4020, L503.6005, L300.4310, L300.3900, L500.4050, M200.1000, L100.0100 #### [facility] [address] [place], [address] Globulin (S) [Mass/Vol] 4.4 g/dL High 2.2-4.2 [facility] Comment on above: Order Comment: 'TROP ' Serial specimen #1, #2 or #3: 1 Performed By: #### L 501.4020, L503.6005, L300.4310, L300.3900, L500.4050, M200.1000, L100.0100 #### [facility] [address] [place], [address] Glucose [Mass/Vol] 142 mg/dL High 74-106 [facility] Comment on above: Order Comment: 'TROP ' Serial specimen #1, #2 or #3: 1 Result Comment: Fast ing Glucose result greater than or equal to 126 mg/dL suggests DIABETES MELLITUS per A.D.A. criteria. Performed By: #### L 501.4020, L503.6005, L300.4310, L300.3900, L500.4050, M200.1000, L100.0100 #### [facility] [address] [place], [address] Potassium [Moles/Vol] 3.4 mmol/L Low 3.5-5.1 [facility] Comment on above: Order Comment: 'TROP ' Serial specimen #1, #2 or #3: 1 Performed By: #### L 501.4020, L503.6005, L300.4310, L300.3900, L500.4050, M200.1000, L100.0100 #### [facility] [address] [place], [address] Sodium [Moles/Vol] 141 mmol/L Normal 136-145 [facility] Comment on above: Order Comment: 'TROP ' Serial specimen #1, #2 or #3: 1 Performed By: #### L 501.4020, L503.6005, L300.4310, L300.3900, L500.4050, M200.1000, L100.0100 #### [facility] [address] [place], [address] T PROT 7.4 g/dL Normal 6.4-8.2 [facility] Comment on above: Order Comment: 'TROP ' Serial specimen #1, #2 or #3: 1 Performed By: #### L 501.4020, L503.6005, L300.4310, L300.3900, L500.4050, M200.1000, L100.0100 #### [facility] [address] [place], [address] Urea nitrogen [Mass/Vol] 12 mg/dL Normal 7-18 [facility] Comment on above: Order Comment: 'TROP ' Serial specimen #1, #2 or #3: 1 Performed By: #### L 501.4020, L503.6005, L300.4310, L300.3900, L500.4050, M200.1000, L100.0100 #### [facility] [address] [place], [address] Culture, Blood (WB)on 2023 CUB Blood cultures x2, f rom two different sites No growth in 5 days. Normal [facility] Comment on above: Performed By: #### M 200.1000 #### [facility] [address] [place], [address] CUB Blood cultures x2, f rom two different sites No growth in 5 days. Normal [facility] Comment on above: Performed By: #### L 501.4020, L503.6005, L300.4310, L300.3900, L500.4050, M200.1000, L100.0100 #### [facility] [address] [place], [address] Urine Cultureon 02-20-2024 URC Below infection leve l. Mixed Gram Positive Organisms [place] Count <1000 MIXC Mixed contaminants. Submit a new specimen if indicated. Normal [facility] Comment on above: Performed By: #### L 501.4020, L503.6005, L300.4310, L300.3900, L500.4050, M200.1000, L100.0100 #### [facility] [address] [place], [address] CBC W/Diff, Automatedon 12-0 -2023 Absolute Lymph 1.66 X10 3/uL Normal 0.83-4.51 [facility] Comment on above: Performed By: #### L 501.4020, L503.6005, L300.4310, L300.3900, L500.4050, M200.1000, L100.0100 #### [facility] [address] [place], [address] Absolute Neut 13.9 X10 3/uL High 2.0-7.7 [facility] Comment on above: Performed By: #### L 501.4020, L503.6005, L300.4310, L300.3900, L500.4050, M200.1000, L100.0100 #### [facility] [address] [place], [address] Basophils/100 WBC (Bld) 0.2 % Normal 0-1 [facility] Comment on above: Performed By: #### L 501.4020, L503.6005, L300.4310, L300.3900, L500.4050, M200.1000, L100.0100 #### [facility] [address] [place], [address] Eosinophils/100 WBC (Bld) 0.1 % Normal 0-5 [facility] Comment on above: Performed By: #### L 501.4020, L503.6005, L300.4310, L300.3900, L500.4050, M200.1000, L100.0100 #### [facility] [address] [place], [address] Erythrocyte distribution width (RBC) [Ratio] 13.9 % Normal 11.6-14.6 [facility] Comment on above: Performed By: #### L 501.4020, L503.6005, L300.4310, L300.3900, L500.4050, M200.1000, L100.0100 #### [facility] [address] [place], [address] Hematocrit (Bld) [Volume fraction] 42.1 % Normal 40-54 [facility] Comment on above: Performed By: #### L 501.4020, L503.6005, L300.4310, L300.3900, L500.4050, M200.1000, L100.0100 #### [facility] [address] [place], [address] Hemoglobin (Bld) [Mass/Vol] 13.9 g/dL Normal 13.0-16.5 [facility] Comment on above: Performed By: #### L 501.4020, L503.6005, L300.4310, L300.3900, L500.4050, M200.1000, L100.0100 #### [facility] [address] [place], [address] IG% 2.000 High 0.0-0.9 [facility] Comment on above: Result Comment: IG% - Immature Granulocytes (promyelocytes, myelocytes and metamyelocytes) > 1% indicates that a LEFT SHIFT is Present. Performed By: #### L 501.4020, L503.6005, L300.4310, L300.3900, L500.4050, M200.1000, L100.0100 #### [facility] [address] [place], [address] Lymphocytes/100 WBC (Bld) 9.8 % Low 19-41 [facility] Comment on above: Performed By: #### L 501.4020, L503.6005, L300.4310, L300.3900, L500.4050, M200.1000, L100.0100 #### [facility] [address] [place], [address] MCH (RBC) [Entitic mass] 31.1 pg Normal 27.0-32.0 [facility] Comment on above: Performed By: #### L 501.4020, L503.6005, L300.4310, L300.3900, L500.4050, M200.1000, L100.0100 #### [facility] [address] [place], [address] MCHC (RBC) [Mass/Vol] 33.0 g/dL Normal 32-36 [facility] Comment on above: Performed By: #### L 501.4020, L503.6005, L300.4310, L300.3900, L500.4050, M200.1000, L100.0100 #### [facility] [address] [place], [address] MCV (RBC) [Entitic vol] 94.2 fL High 80-94 [facility] Comment on above: Performed By: #### L 501.4020, L503.6005, L300.4310, L300.3900, L500.4050, M200.1000, L100.0100 #### [facility] [address] [place], [address] Monocytes/100 WBC (Bld) 6.3 % Normal 0-10 [facility] Comment on above: Performed By: #### L 501.4020, L503.6005, L300.4310, L300.3900, L500.4050, M200.1000, L100.0100 #### [facility] [address] [place], [address] Neutrophils/100 WBC (Bld) 81.6 % High 47-70 [facility] Comment on above: Performed By: #### L 501.4020, L503.6005, L300.4310, L300.3900, L500.4050, M200.1000, L100.0100 #### [facility] [address] [place], [address] Nucleated RBC (Bld) [#/Vol] 0 10*3/uL Normal 0-5 [facility] Comment on above: Performed By: #### L 501.4020, L503.6005, L300.4310, L300.3900, L500.4050, M200.1000, L100.0100 #### [facility] [address] [place], [address] Platelet mean volume (Bld) [Entitic vol] 10.2 fL Normal 6.2-12.0 [facility] Comment on above: Performed By: #### L 501.4020, L503.6005, L300.4310, L300.3900, L500.4050, M200.1000, L100.0100 #### [facility] [address] [place], [address] Platelets (Bld) [#/Vol] 187 10*3/uL Normal 150-450 [facility] Comment on above: Performed By: #### L 501.4020, L503.6005, L300.4310, L300.3900, L500.4050, M200.1000, L100.0100 #### [facility] [address] [place], [address] RBC (Bld) [#/Vol] 4.47 10*6/uL Low 4.6-6.2 [facility] Comment on above: Performed By: #### L 501.4020, L503.6005, L300.4310, L300.3900, L500.4050, M200.1000, L100.0100 #### [facility] [address] [place], [address] RDW SD 48.4 fl High 35.1-43.9 [facility] Comment on above: Performed By: #### L 501.4020, L503.6005, L300.4310, L300.3900, L500.4050, M200.1000, L100.0100 #### [facility] [address] [place], [address] WBC (Bld) [#/Vol] 17.0 10*3/uL High 4.4-11.0 [facility] Comment on above: Performed By: #### L 501.4020, L503.6005, L300.4310, L300.3900, L500.4050, M200.1000, L100.0100 #### [facility] [address] [place], [address] Comprehensive Metabolic Prof ilon 02-18-2024 Albumin [Mass/Vol] 3.5 g/dL Normal 3.2-5.0 [facility] Comment on above: Order Comment: 'TROP ' Serial specimen #1, #2 or #3: 1 Performed By: #### L 501.4020, L503.6005, L300.4310, L300.3900, L500.4050, M200.1000, L100.0100 #### [facility] [address] [place], [address] Albumin/Globulin [Mass ratio] 0.9 {ratio} Normal 0.9-2.4 [facility] Comment on above: Order Comment: 'TROP ' Serial specimen #1, #2 or #3: 1 Performed By: #### L 501.4020, L503.6005, L300.4310, L300.3900, L500.4050, M200.1000, L100.0100 #### [facility] [address] [place], [address] ALK P 63 U/L Normal 45-117 [facility] Comment on above: Order Comment: 'TROP ' Serial specimen #1, #2 or #3: 1 Performed By: #### L 501.4020, L503.6005, L300.4310, L300.3900, L500.4050, M200.1000, L100.0100 #### [facility] [address] [place], [address] ALT [Catalytic activity/Vol] 15 U/L Low 16-61 [facility] Comment on above: Order Comment: 'TROP ' Serial specimen #1, #2 or #3: 1 Performed By: #### L 501.4020, L503.6005, L300.4310, L300.3900, L500.4050, M200.1000, L100.0100 #### [facility] [address] [place], [address] AST [Catalytic activity/Vol] 12 U/L Low 15-37 [facility] Comment on above: Order Comment: 'TROP ' Serial specimen #1, #2 or #3: 1 Performed By: #### L 501.4020, L503.6005, L300.4310, L300.3900, L500.4050, M200.1000, L100.0100 #### [facility] [address] [place], [address] Bilirubin [Mass/Vol] 0.70 mg/dL Normal 0.20-1.00 [facility] Comment on above: Order Comment: 'TROP ' Serial specimen #1, #2 or #3: 1 Result Comment: For patients on eltrombopag therapy, use of Dimension [place] TBIL is not recommended. Performed By: #### L 501.4020, L503.6005, L300.4310, L300.3900, L500.4050, M200.1000, L100.0100 #### [facility] [address] [place], [address] BUN/CRE 13.1 RATIO Normal 10-20 [facility] Comment on above: Order Comment: 'TROP ' Serial specimen #1, #2 or #3: 1 Performed By: #### L 501.4020, L503.6005, L300.4310, L300.3900, L500.4050, M200.1000, L100.0100 #### [facility] [address] [place], [address] CA,Total 8.7 mg/dL Normal 8.5-10.1 [facility] Comment on above: Order Comment: 'TROP ' Serial specimen #1, #2 or #3: 1 Performed By: #### L 501.4020, L503.6005, L300.4310, L300.3900, L500.4050, M200.1000, L100.0100 #### [facility] [address] [place], [address] Chloride [Moles/Vol] 103 mmol/L Normal 98-107 [facility] Comment on above: Order Comment: 'TROP ' Serial specimen #1, #2 or #3: 1 Performed By: #### L 501.4020, L503.6005, L300.4310, L300.3900, L500.4050, M200.1000, L100.0100 #### [facility] [address] [place], [address] CO2 [Moles/Vol] 25.0 mmol/L Normal 21.0-32.0 [facility] Comment on above: Order Comment: 'TROP ' Serial specimen #1, #2 or #3: 1 Performed By: #### L 501.4020, L503.6005, L300.4310, L300.3900, L500.4050, M200.1000, L100.0100 #### [facility] [address] [place], [address] Creatinine [Mass/Vol] 0.92 mg/dL Normal 0.70-1.30 [facility] Comment on above: Order Comment: 'TROP ' Serial specimen #1, #2 or #3: 1 Result Comment: The validity of the calculated GFR GFRAA in patients over 70 years has not been determined. Clinical correlation is essential. Performed By: #### L 501.4020, L503.6005, L300.4310, L300.3900, L500.4050, M200.1000, L100.0100 #### [facility] [address] [place], [address] ECRCL 67.24 ml/min Normal [facility] Comment on above: Order Comment: 'TROP ' Serial specimen #1, #2 or #3: 1 Performed By: #### L 501.4020, L503.6005, L300.4310, L300.3900, L500.4050, M200.1000, L100.0100 #### [facility] [address] [place], [address] EST GFR - AA 103 mL/min Normal >60 [facility] Comment on above: Order Comment: 'TROP ' Serial specimen #1, #2 or #3: 1 Result Comment: Afri can [place] GFR Calc Performed By: #### L 501.4020, L503.6005, L300.4310, L300.3900, L500.4050, M200.1000, L100.0100 #### [facility] [address] [place], [address] GAP 8 Normal 5-15 [facility] Comment on above: Order Comment: 'TROP ' Serial specimen #1, #2 or #3: 1 Performed By: #### L 501.4020, L503.6005, L300.4310, L300.3900, L500.4050, M200.1000, L100.0100 #### [facility] [address] [place], [address] GFR/1.73 sq M.predicted among non-blacks MDRD (S/P/Bld) [Vol rate/Area] 85 mL/min/{1.73_m2} Normal >60 [facility] Comment on above: Order Comment: 'TROP ' Serial specimen #1, #2 or #3: 1 Result Comment: Non- GFR Calc Performed By: #### L 501.4020, L503.6005, L300.4310, L300.3900, L500.4050, M200.1000, L100.0100 #### [facility] [address] [place], [address] Globulin (S) [Mass/Vol] 3.7 g/dL Normal 2.2-4.2 [facility] Comment on above: Order Comment: 'TROP ' Serial specimen #1, #2 or #3: 1 Performed By: #### L 501.4020, L503.6005, L300.4310, L300.3900, L500.4050, M200.1000, L100.0100 #### [facility] [address] [place], [address] Glucose [Mass/Vol] 160 mg/dL High 74-106 [facility] Comment on above: Order Comment: 'TROP ' Serial specimen #1, #2 or #3: 1 Result Comment: Fast ing Glucose result greater than or equal to 126 mg/dL suggests DIABETES MELLITUS per A.D.A. criteria. Performed By: #### L 501.4020, L503.6005, L300.4310, L300.3900, L500.4050, M200.1000, L100.0100 #### [facility] [address] [place], [address] Potassium [Moles/Vol] 3.5 mmol/L Normal 3.5-5.1 [facility] Comment on above: Order Comment: 'TROP ' Serial specimen #1, #2 or #3: 1 Performed By: #### L 501.4020, L503.6005, L300.4310, L300.3900, L500.4050, M200.1000, L100.0100 #### [facility] [address] [place], [address] Sodium [Moles/Vol] 136 mmol/L Normal 136-145 [facility] Comment on above: Order Comment: 'TROP ' Serial specimen #1, #2 or #3: 1 Performed By: #### L 501.4020, L503.6005, L300.4310, L300.3900, L500.4050, M200.1000, L100.0100 #### [facility] [address] [place], [address] T PROT 7.2 g/dL Normal 6.4-8.2 [facility] Comment on above: Order Comment: 'TROP ' Serial specimen #1, #2 or #3: 1 Performed By: #### L 501.4020, L503.6005, L300.4310, L300.3900, L500.4050, M200.1000, L100.0100 #### [facility] [address] [place], [address] Urea nitrogen [Mass/Vol] 12 mg/dL Normal 7-18 [facility] Comment on above: Order Comment: 'TROP ' Serial specimen #1, #2 or #3: 1 Performed By: #### L 501.4020, L503.6005, L300.4310, L300.3900, L500.4050, M200.1000, L100.0100 #### [facility] [address] [place], [address] L501.4020on 02-18-2024 TROPONIN-I HS 16 pg/mL Normal 3.0-78.0 [facility] Comment on above: Order Comment: 'TROP ' Serial specimen #1, #2 or #3: 1 Result Comment: Plea se Note: New Test Units and Gender Specific Reference Ranges. For more information see Policy Stat Procedure [place] High Sensitivity Troponin (TNIH) and attachments. Performed By: #### L 501.4020, L503.6005, L300.4310, L300.3900, L500.4050, M200.1000, L100.0100 #### [facility] [address] [place], [address] ( Lactic Acidon 02-18-2024 Lactate [Moles/Vol] 1.3 mmol/L Normal 0.4-1.9 [facility] Comment on above: Order Comment: Y Performed By: #### L 501.4020, L503.6005, L300.4310, L300.3900, L500.4050, M200.1000, L100.0100 #### [facility] [address] [place], [address] (591 M100.678on 02-18-2024 M100.678 Pending SARS-CoV-2 (COVID 19) Negative INFLUENZA A Negative INFLUENZA B Negative RSV PCR Negative Normal [facility] Comment on above: Performed By: #### L 501.4020, L503.6005, L300.4310, L300.3900, L500.4050, M200.1000, L100.0100 #### [facility] [address], [address] (000 Partial Thromboplast Timeon 02-18-2024 aPTT Coag (Bld) [Time] 34.0 s Normal 24.1-36.2 [facility] Comment on above: Performed By: #### L 501.4020, L503.6005, L300.4310, L300.3900, L500.4050, M200.1000, L100.0100 #### [facility] [address] [place], [place], [id number] (933 Prothrombin Time w/INRon INR Coag (PPP) [Relative time] 1.2 {INR} Normal [facility] Comment on above: Performed By: #### L 501.4020, L503.6005, L300.4310, L300.3900, L500.4050, M200.1000, L100.0100 #### [facility] [address] [place], [address] PT Coag (PPP) [Time] 15.0 s High 11.7-14.9 [facility] Comment on above: Performed By: #### L 501.4020, L503.6005, L300.4310, L300.3900, L500.4050, M200.1000, L100.0100 #### [facility] [address] [place], [place], [address] Urinalysis, Completeon 02-17 BACTERIA RARE Normal None Seen [facility] Comment on above: Order Comment: 'TROP ' Serial specimen #1, #2 or #3: 1 Performed By: #### L 501.4020, L503.6005, L300.4310, L300.3900, L500.4050, M200.1000, L100.0100 #### [facility] [address] [place], [place], [id number] CA OX CRYSTAL 3+ /hpf Normal [facility] Comment on above: Order Comment: 'TROP ' Serial specimen #1, #2 or #3: 1 Performed By: #### L 501.4020, L503.6005, L300.4310, L300.3900, L500.4050, M200.1000, L100.0100 #### [facility] [address] [place], [address] CAST,HYALINE 0-5 SEEN Normal 0-5 [facility] Comment on above: Order Comment: 'TROP ' Serial specimen #1, #2 or #3: 1 Performed By: #### L 501.4020, L503.6005, L300.4310, L300.3900, L500.4050, M200.1000, L100.0100 #### [facility] [address] [place], [address] EPI,SQUAMOUS 0-5 SEEN Normal 0-5 [facility] Comment on above: Order Comment: 'TROP ' Serial specimen #1, #2 or #3: 1 Performed By: #### L 501.4020, L503.6005, L300.4310, L300.3900, L500.4050, M200.1000, L100.0100 #### [facility] [address] [place], [address] Mucus Ql (Urine sed) RARE Normal [facility] Comment on above: Order Comment: 'TROP ' Serial specimen #1, #2 or #3: 1 Performed By: #### L 501.4020, L503.6005, L300.4310, L300.3900, L500.4050, M200.1000, L100.0100 #### [facility] [address] [place], [address] RBC 5-10 SEEN Normal 0-5 [facility] Comment on above: Order Comment: 'TROP ' Serial specimen #1, #2 or #3: 1 Performed By: #### L 501.4020, L503.6005, L300.4310, L300.3900, L500.4050, M200.1000, L100.0100 #### [facility] [address] [place], [address] WBC 0 SEEN Normal 0-5 [facility] Comment on above: Order Comment: 'TROP ' Serial specimen #1, #2 or #3: 1 Performed By: #### L 501.4020, L503.6005, L300.4310, L300.3900, L500.4050, M200.1000, L100.0100 #### [facility] [address] [place], [address] 12 Lead EKGon 02-17-2024 12 Lead EKG [facility] [address] [place] [address] 12 Lead EKG 02/18/24 0045 MR#: [id number] Acct: [id number] Name: ANDREW GUARDADO Rep #: [id number] : 1945 78 From: Bentley Rivera MD Attending Dr: Status: DEP ER Ordering Dr: Viet Alfonso MD Date: 02/17/24 Location: ED Sex: M C Admitted: Test Reason : DYSRHYTHMIA Blood Pressure : */* mmHG Vent. Rate : 65 BPM Atrial Rate : 65 BPM P-R Int : 180 ms QRS Dur : 96 ms QT Int : 388 ms P-R-T Axes : 47 64 54 degrees QTcB Int : 403 ms Normal sinus rhythm with sinus arrhythmia /occasional PVC's Abnormal ECG Confirmed by Bentley Rivera ([id number]), assignment desk editor YOSELIN GRAY ([id number]) on 02/19/2024 11:40:06 AM Referred By: Confirmed By: Bentley Rivera 02/19/24 1140 Date Bentley Rivera MD CC: Dr. Shelli Romo MD; Dr. Viet Alfonso MD Signed Normal [facility] Chest 1 View (Portable)on Chest 1 View (Portable) [facility] Imaging Services [address] [place] [address] Chest 1 View (Portable) MR#: [id number] Acct: [id number] Name: ANDREW GUARDADO Rep #: [id number] : 1945 M 78 From: Wilfrid Francois MD PCP: Dr. Shelli Romo MD Status: REG ER Study: Chest 1 View (Portable) Date of Exam: 02/17/24 Exam# [id number] Ordering Dr: Viet Alfonso MD :[id number] EXAM: XR Chest 1 View INDICATION: Male, 78 years old. Fever TECHNIQUE: Single AP view COMPARISON: None FINDINGS: DEVICES: None LUNGS: Patchy airspace opacification at the right lung base which partially obscures the hemidiaphragm. No concerning pulmonary nodule. No pleural effusion or pneumothorax. MEDIASTINUM: Borderline cardiomegaly. Mediastinal silhouette is within normal limits. No central pulmonary vascular congestion. Calcification of the aortic arch. . SKELETAL STRUCTURES: No acute skeletal abnormality. UPPER ABDOMEN: Unremarkable RAD/Chest 1 View (Portable) IMPRESSION: Right lung base pneumonia Electronically Signed: Wilfrid Francois MD at 0:22 EST , CC: Dr. Shelli Romo MD; Dr. Viet Alfonso MD Immunologist: Signed Normal [facility] Emergency Department Summary on 02-17-2024 Emergency Department Summary [facility] Medical Records Department [address] [place] [address] Emergency Department Summary 02/17/24 MR#: [id number] Acct: [id number] Name: ANDREW GUARDADO Rep #: [id number] : 1945 78 From: Viet Alfonso MD PCP: Dr. Shelli Romo MD Status:REG ER Location: ED HPI History of Present Illness Chief Complaint: Cold Sx Informant: patient and spouse/S.O. Narrative Narrative: 78-year-old male has had a fever of 102.1 at max over the course of the day. Generally weak and hard to stand as a result and poor appetite all day in addition to very poor fluid intake. He urinated earlier he states it is difficult to get out which is not new for him, but it was dark. No dysuria. He has COPD and a chronic cough the patient denies this being any worse today, and he denies having any chest discomfort or dyspnea although family states he look like he was breathing harder than usual at 1 point. He refused to take any medication for his fever until just recently tonight, some ibuprofen that his gave him and that eventually she brought him here after she saw him hanging his head over a sink due to being weak according to the patient. He denies any sputum production from his cough that is no worse than usual. He denies any GI symptoms. [facility] Medical History Throat cancer COPD (chronic obstructive pulmonary disease) Type 2 diabetes mellitus Mixed hyperlipidemia Essential hypertension Presence of stent in coronary artery ( 11/20/03) Atherosclerotic heart disease of [place] coronary artery without angina pectoris Home Medications ???Medication ???Instructions ???Recorded ???Last Taken ???Type metoprolol succinate 25 mg 12.5 mg PO DAILY 08/14/17 Unknown History tablet,extended release 24 hr simvastatin 40 mg tablet 40 mg PO QHS 08/14/17 Unknown History aspirin 81 mg tablet,delayed 81 mg PO DAILY 03/23/21 Unknown History release (Adult Low Dose Aspirin) coenzyme Q10 200 mg capsule 200 mg PO DAILY 03/23/21 Unknown History ferrous gluconate 256 mg (28 mg 256 mg PO DAILY 03/23/21 Unknown History iron) tablet garlic 600 mg capsule 1,200 mg PO DAILY 03/23/21 Unknown History melatonin 10 mg tablet 10 mg PO HS PRN sleep 03/23/21 Unknown History vitamin B complex 1 tab PO DAILY 03/23/21 Unknown History balsalazide 750 mg capsule 2,250 mg PO BID 04/01/21 Unknown History cholecalciferol (vitamin D3) 50 50 mcg PO DAILY 04/01/21 Unknown History mcg (2,000 unit) capsule glimepiride 4 mg tablet 2 mg PO DAILY 04/01/21 Unknown History turmeric root extract 500 mg 500 mg PO DAILY 04/01/21 Unknown History capsule mesalamine 1,000 mg rectal 1 g GA Q OTHER DAY 09/29/21 Unknown History suppository metformin 500 mg tablet,extended 500 mg PO DAILY 09/29/21 Unknown History release 24 hr omega 6-hyl-kds-fish oil 1,200 mg 1 cap PO DAILY 09/29/21 Unknown History (144 mg-216 mg) capsule (Fish Oil) azithromycin 250 mg tablet 250 mg PO DAILY #4 TABLETS 02/18/24 Unknown Rx Allergy/AdvReac Type Severity Reaction Status Date / Time atorvastatin AdvReac muscle Verified 09/29/21 08:39 aches Family History Mother No problems noted. Father No problems noted. Surgical History Presence of coronary angioplasty implant and graft ( 11/20/03) Social History Smoking Status: Current every day smoker tobacco type: cigarettes quit status: has quit before alcohol intake: never substance use type: does not use caffeine: Yes Type: coffee Number of servings: 4 ROS ROS ED Constitutional Constitutional ED: Reports anorexia, fever(s), malaise and weakness; Denies body ache(s) or chills Eyes Eyes: Denies change in vision or diplopia ENT ENT ED: Denies ear pain, rhinorrhea or sore throat Cardiovascular Cardiovascular: Reports leg edema; Denies chest pain or palpitations Respiratory/Chest Respiratory/Chest: Reports cough; Denies dyspnea or sputum Gastrointestinal Gastrointestinal: Denies abdominal pain, diarrhea, nausea or vomiting Genitourinary Genitourinary ED: Reports decreased urination and drinking/eating less; Denies dysuria or hematuria Musculoskeletal Musculoskeletal: Denies back pain or neck pain Integumentary Denies abscess or rash Neurologic Neurologic: Denies headache(s), paresthesias or weakness Psychiatric Psychiatric: Denies anxiety or suicidal thoughts EXAM Physical Exam Const Vital Signs: 02/17/24 23:42 02/17/24 23:45 02/17/24 23:49 Temperature 99.3 F H 99.3 F H Temperature Source Oral Oral Pulse Rate 74 82 Respiratory Rate 24 H 30 H Respi (more content not included)... Normal [facility] Basophil percentageOrdered B y: Dr. Romo on 07-20-2022 Bilirubin [Mass/Vol] 0.40 mg/dL 0.20-1.00 [facility] Comment on above: For patients on eltr ombopag therapy, use of Dimension [place] TBIL is not recommended. Chloride [Moles/Vol] 104 mmol/L 98-107 [facility] Cholesterol [Mass/Vol] 96 mg/dL <200 [facility] Comment on above: <200 mg/dL Desirable 200-240 mg/dL Borderline >240 mg/dL High Risk Glucose [Mass/Vol] 238 mg/dL 74-106 [facility] Comment on above: Glucose result great er than or equal to 200 mg/dLsuggests DIABETES MELLITUS per A.D.A. criteria. Potassium [Moles/Vol] 4.3 mmol/L 3.5-5.1 [facility] Protein [Mass/Vol] 7.4 g/dL 6.4-8.2 [facility] Sodium [Moles/Vol] 138 mmol/L 136-145 [facility] Triglyceride [Mass/Vol] 142 mg/dL <199 [facility] Comment on above: The drugs N-Acetylcy steine and Metamizole may falsely depress this assay.Serum Triglycerides Reference Interval Normal <150 mg/dL Borderline high 150 - 199 mg/dL High 200 - 499 mg/dL Very High > or = 500 mg/dL Direct bilirubinOrdered By: Dr. Romo on 07-20-2022 Bilirubin.direct [Mass/Vol] 0.12 mg/dL 0.00-0.30 [facility] Laboratory - Chemistry and C hemistry - challengeOrdered By: Dr. Romo on 07-20-2022 ALP [Catalytic activity/Vol] 70 U/L 45-117 [facility] ALT [Catalytic activity/Vol] 23 U/L 16-61 [facility] CO2 [Moles/Vol] 27.0 mmol/L 21.0-32.0 [facility] Globulin (S) [Mass/Vol] 3.8 g/dL 2.2-4.2 [facility] Urea nitrogen/Creatinine [Mass ratio] 14.1 mg/mg 10-20 [facility] No Panel InformationOrdered By: Dr. Romo on 07-20-2022 Estimated GFR (MDRD) Amer 94 mL/min >60 [facility] Comment on above: GFR Calc Estimated GFR (MDRD) Non-Af Amer 78 mL/min >60 [facility] Comment on above: Non- GFR Calc Serum or plasma albumin juan urement (mass/volume)Ordered By: Dr. Romo on 07-20-2022 Albumin [Mass/Vol] 3.6 g/dL 3.2-5.0 [facility] Serum or plasma calcium juan urement (mass/volume)Ordered By: Dr. Romo on 07-20-2022 Calcium [Mass/Vol] 8.9 mg/dL 8.5-10.1 [facility] Serum or plasma cholesterol in HDL measurement (mass/volume)Ordered By: Dr. Romo on 07-20-2022 Cholesterol in HDL [Mass/Vol] 37 mg/dL >40 [facility] Comment on above: The drugs N-Acetylcy steine and Metamizole may falsely depress this assay. Reference Range HDL <40 mg/dL Low HDL Cholesterol HDL >or= 60 mg/dL High HDL Cholesterol Serum or plasma cholesterol in VLDL measurement (mass/volume)Ordered By: Dr. Romo on 07-20-2022 Cholesterol in VLDL [Mass/Vol] 28 mg/dL 5-40 [facility] Serum or plasma creatinine m easurement (mass/volume)Ordered By: Dr. Romo on 07-20-2022 Creatinine [Mass/Vol] 0.99 mg/dL 0.70-1.30 [facility] Comment on above: The validity of the calculated GFR & GFRAA in patients over 70 years has not been determined. Clinical correlation is essential. Serum or plasma low density lipoprotein (LDL) cholesterol measurement (mass/volume)Ordered By: Dr. Romo on 07-20-2022 Cholesterol in LDL [Mass/Vol] 31 mg/dL 0-130 [facility] Serum or plasma urea nitroge n measurement (mass/volume)Ordered By: Dr. Romo on 07-20-2022 Urea nitrogen [Mass/Vol] 14 mg/dL 7-18 [facility] Thin prep Papanicolaou smear with manual screeningOrdered By: Dr. Romo on 07-20-2022 Thin prep Papanicolaou smear with manual screening 18 U/L 15-37 [facility] Thin prep Papanicolaou smear with manual screening 7 5-15 [facility] Basophil percentageon 2021 Bilirubin [Mass/Vol] 0.30 mg/dL 0.20-1.00 [facility] Work Phone: Comment on above: For patients on eltr ombopag therapy, use of Dimension [place] TBIL is not recommended. Chloride [Moles/Vol] 103 mmol/L 98-107 [facility] Work Phone: Cholesterol [Mass/Vol] 104 mg/dL <200 [facility] Work Phone: Comment on above: <200 mg/dL Desirable 200-240 mg/dL Borderline >240 mg/dL High Risk Glucose [Mass/Vol] 181 mg/dL 74-106 [facility] Work Phone: Comment on above: Fasting Glucose resu lt greater than or equal to 126 mg/dL suggests DIABETES MELLITUS per A.D.A. criteria. Potassium [Moles/Vol] 4.2 mmol/L 3.5-5.1 [facility] Work Phone: Protein [Mass/Vol] 7.6 g/dL 6.4-8.2 [facility] Work Phone: Sodium [Moles/Vol] 137 mmol/L 136-145 [facility] Work Phone: Triglyceride [Mass/Vol] 142 mg/dL [facility] Work Phone: Comment on above: The drugs N-Acetylcy steine and Metamizole may falsely depress this assay.Serum Triglycerides Reference Interval Normal <150 mg/dL Borderline high 150 - 199 mg/dL High 200 - 499 mg/dL Very High > or = 500 mg/dL Direct bilirubinon 2 Bilirubin.direct [Mass/Vol] 0.10 mg/dL 0.00-0.30 [facility] Work Phone: Laboratory - Chemistry and C hemistry - challengeon 06-21-2021 ALP [Catalytic activity/Vol] 67 U/L 45-117 [facility] Work Phone: ALT [Catalytic activity/Vol] 25 U/L 16-61 [facility] Work Phone: CO2 [Moles/Vol] 29.0 mmol/L 21.0-32.0 [facility] Work Phone: Globulin (S) [Mass/Vol] 3.8 g/dL 2.2-4.2 [facility] Work Phone: Urea nitrogen/Creatinine [Mass ratio] 18.2 mg/mg 10-20 [facility] Work Phone: No Panel Informationon 06-21 Estimated GFR (MDRD) Amer 102 mL/min >60 [facility] Work Phone: Comment on above: GFR Calc Estimated GFR (MDRD) Non-Af Amer 84 mL/min >60 [facility] Work Phone: Comment on above: Non- GFR Calc Serum or plasma albumin juan urement (mass/volume)on 06-21-2021 Albumin [Mass/Vol] 3.8 g/dL 3.2-5.0 [facility] Work Phone: Serum or plasma calcium juan urement (mass/volume)on 06-21-2021 Calcium [Mass/Vol] 8.5 mg/dL 8.5-10.1 [facility] Work Phone: Serum or plasma cholesterol in HDL measurement (mass/volume)on 06-21-2021 Cholesterol in HDL [Mass/Vol] 35 mg/dL [facility] Work Phone: Comment on above: The drugs N-Acetylcy steine and Metamizole may falsely depress this assay. Reference Range HDL <40 mg/dL Low HDL Cholesterol HDL >or= 60 mg/dL High HDL Cholesterol Serum or plasma cholesterol in VLDL measurement (mass/volume)on 06-21-2021 Cholesterol in VLDL [Mass/Vol] 28 mg/dL 5-40 [facility] Work Phone: Serum or plasma creatinine m easurement (mass/volume)on 06-21-2021 Creatinine [Mass/Vol] 0.93 mg/dL 0.70-1.30 [facility] Work Phone: Comment on above: The validity of the calculated GFR & GFRAA in patients over 70 years has not been determined. Clinical correlation is essential. Serum or plasma low density lipoprotein (LDL) cholesterol measurement (mass/volume)on 06-21-2021 Cholesterol in LDL [Mass/Vol] 41 mg/dL 0-130 [facility] Work Phone: Serum or plasma urea nitroge n measurement (mass/volume)on 06-21-2021 Urea nitrogen [Mass/Vol] 17 mg/dL 7-18 [facility] Work Phone: Thin prep Papanicolaou smear with manual screeningon 06-21-2021 Thin prep Papanicolaou smear with manual screening 22 U/L 15-37 [facility] Work Phone: Thin prep Papanicolaou smear with manual screening 5 5-15 [facility] Work Phone: CNOVon 05-05-2017 CNOV Office Visit (AGCARDWST) -------ANDREW GUARDADO ([id number]) 1945 MDate Time Provider Department05/05/17 9:00 AM SELENE COSBY AGCARDWST During your visit today, we recorded the following information about you: Pulse Blood pressure Weight Height 56/minute 116/70 97.4 kg 1.753 Jeb Cosby MD 05/05/2017 9:28 AM SignedPERTINENT CARDIAC HISTORYASHD - s/p PCI RCA 2004Carotid artery diseaseHTNHLADHERENCE TO GUIDELINESACE-I or ARB for HF with prior LVEFANDlt;40 (NQF 0081) - N/AASA or Plavix for ASHD (NQF 0067) - METBeta ryan for ASHD with prior LA or prior LVEFANDlt;40 (NQF 0070) - N/ABeta ryan for HF with prior LVEFANDlt;40 (NQF 0083) - N/AACE-I or ARB for ASHD with DM or prior LVEFANDlt;40 (NQF 0066) - N/AStatin therapy for ASHD or FHL or DM - METBMI documented and plan if ANDgt;25 (NQF 0421) - lifestyle recommendation formTobacco use screening and referral ([facility] 0028) - lifestyle recommendation formRecommendation for whole food, plant based diet - lifestyle recommendation formCLINICAL IMPRESSION/PLAN:Andrew Guardado is doing well. His coronary disease is stable and bloodpressure well controlled. I've encouraged him to be active.We will call him with results of his labs. He will continue his currentmedications.I will see him in 12 months or as needed.Written and verbal health teaching given to patient, patient verbalizesunderstanding and agrees with treatment plan.This note was generated using [employer] recognition system, and there may besome incorrect words, spellings, and punctuation that were not noted inchecking the note before saving.DIAGNOSIS FOR VISIT:ASHDHISTORY OF PRESENT ILLNESSAndrew Guardado returns for follow-up of his coronary disease andhypertension.He reports stable exercise tolerance. He has had no chest discomfort and hasused no nitroglycerin. He is tolerating medications well.He denies orthopnea, edema, syncope, palpitations, TIAs, amaurosis andclaudication.ALLERGIES:JEY Breaux Known AllergiesCURRENT OUTPATIENT MEDICATIONS:metoprolol succinate ER (TOPROL XL) 25 mg 24 hr tablet TAKE ONE-HALF (1/2)TABLET EVERY OTHER DAYsimvastatin (ZOCOR) 40 mg tablet TAKE 1 TABLET EVERY DAY AT BEDTIMECoenzyme Q10 (CO Q-10) 200 mg cap Take by mouth daily at bedtime.alpha tocopheryl acetate 400 unit capsule Take 400 Units by mouth once daily.Garlic 600 mg cap Take 1 capsule by mouth once daily.VITAMIN B COMPLEX (B COMPLEX ORAL) Take 1 tablet by mouth once daily.ASPIRIN 81 MG TAB Take one (1) tablet daily .MULTI-VITAMIN ORAL Take 1 tablet by mouth once daily.PHYSICAL EXAMINATION:VITAL SIGNS: BP 116/70 Pulse 56 Ht 5' 9ANDquot; (1.75m) Wt 214 lb 12.8 oz(97.4kg) BMI 31.71 kg/(m2).Chest: Clear to percussion and auscultation. Trachea is midline. Air entry isequal. Cardiac: Regular rhythm. S1 and S2 are normal. PMI is nondisplaced.There is a soft systolic ejection murmur. Carotids are brisk without bruits.JVP is less than 10 cm. Abdomen: Soft and nontender. There are no pulsatilemasses or bruits. No liver enlargement. Bowel sounds are active.Extremities: No edema. Pulses are intact and symmetrical.EKG shows sinus bradycardia and is within normal limits. There is no changefrom 05/05/16.Laboratory studies are pending.Electronically Signed:Selene Cos[facility] MDNol[facility] 2017 9:12 [facility]: Katja Moura MD 05/05/2017 9:12 AM SignedLIFESTYLE CHANGEA healthy lifestyle is the most important component of your overall treatmentplan. Please give serious thought to the following areas and commit to makinglong term changes.EAT A WHOLE FOOD, PLANT BASED DIETThe nutrition your body gets is more important than the medicine you take.What matters most is the overall way you eat. We encourage you to minimize theuse of animal products (which include dairy and all meats except fatty fish)and use whole, unprocessed plant foods to provide your protein, vitamins andother nutrients. We have a lot of information to share with you on this topic. We also hold Shared Medical Appointments, where you can come visit with in the company of other patients and spend over an hour talking aboutthe challenges of changing the way you eat. This is not a ANDquot;dietANDquot;.It is a way of life that you will keep with you.EXERCISE REGULARLYIt is not important to spend hours in the gym, lifting weights and perspiringheavily. A total of 2-3 hours per week of aerobic (causing you to bemoderately short of breath) exercise is sufficient to improve your health.Talk to us before you begin a new exercise program, if you have heart diseaseor experience shortness of breath or chest pain.REDUCE STRESSChronic emotional and physical stress leads to disease. Ways of reducingstress include meditation, visualization, prayer, yoga and other forms ofrelaxation therapy. Consistency is the armendariz. Find a technique that works foryou and do it every day.CULTIVATE RELATIONSHIPSLoneliness and isolation have a major negative impact on health. Seek outothers who can love, care for and nurture you. Avoid hurtful relationships.MAINTAIN IDEAL BODY WEIGHTThe best way to do this is to do all the things above. Our bodies naturallyfind the right weight if we keep moving and feed ourselves the right food. Ifyour BMI is greater than 25, we strongly recommend a referral to a weightmanagement program. Please speak to us or your family physician aboutavailable programs.AVOID NICOTINE IN ALL FORMSThis includes all tobacco products, whether chewed, smoked, vaped, or rubbed onthe skin. Smoking cessation programs, which can make use of tobaccosubstitutes, medications to suppress cravings and behavior management, areavailable. Please contact your family physician about programs in your area.Alex Murray, RN, RN 05/08/2017 9:40 AM SignedCopy of OV note mailed to Dr. Romo's office.Referring Provider: SELENE COSBY [[id number]]Allergies As of Date: 05/05/2017(No Known Allergies)Date Reviewed: 05/05/2017Reviewed by: Yoselin Purcell - Fully AssessedReason for Visit: Follow Up [171]Primary Visit Diagnosis:ASHD (arteriosclerotic heart disease) [I25.10] Other Visit Diagnosis:Essential hypertension [I10]Order(s):ECG B/O W INTERP (MED OFFICE) [ECG06] Order #: [id number] metoprolol succinate ER (TOPROL XL) 25 mg 24 hr tabletTAKE ONE-HALF (1/2) TABLET EVERY OTHER DAYDisp: 45 tabletRfl: 3Prescriptions as of 05/05/2017 Sig: METOPROLOL SUCCINATE ER 25 MG* TAKE ONE-HALF (1/2) TABLET EV* SIMVASTATIN 40 MG TABLET TAKE 1 TABLET EVERY DAY AT BE* COENZYME Q10 200 MG CAPSULE Take by mouth daily at bedti* VITAMIN E 400 UNIT CAPSULE Take 400 Units by mouth once * GARLIC 600 MG CAPSULE Take 1 capsule by mouth once * B COMPLEX ORAL Take 1 tablet by mouth once d* ASPIRIN 81 MG TABLET Take one (1) tablet daily . MULTI-VITAMIN ORAL Take 1 tablet by mouth once d*Problem List As Of Date 05/05/2017 Noted Resolved ARTERIAL DISEASE NEC [I77.89] INVALID FOR* Epidermal Cyst [L72.0] INVALID FOR* Seborrheic Keratosis [L82.1] INVALID FOR* Solar Lentigo [L81.4] INVALID FOR* Actinic Damage//Sun-Damaged Skin [L57.8] INVALID FOR* Cigarette smoker [F17.210] INVALID FOR* Personal history of malignant neoplasm of laryn*INVALID FOR* Other instructions from your clinician: LIFESTYLE CHANGE A healthy lifestyle is the most important component of your overall treatment plan. Please give serious thought to the following areas and commit to making fdc changes. EAT A WHOLE FOOD, PLANT BASED DIET The nutrition your body gets is more important than the medicine you take. What matters most is the overall way you eat. We encourage you to minimize the use of animal products (which include dairy and all meats except fatty fish) and use whole, unprocessed plant foods to provide your protein, vitamins and other nutrients. We have a lot of information to share with you on this topic. We also hold Shared Medical Appointments, where you can come visit with Dr. Cosby in the company of other patients and spend over an hour talking about the challenges of changing the way you eat. This is not a diet. It is a way of life that you will keep with you. EXERCISE REGULARLY It is not important to spend hours in the gym, lifting weights and perspiring heavily. A total of 2-3 hours per week of aerobic (causing you to be moderately short of breath) exercise is sufficient to improve your health. Talk to us before you begin a new exercise program, if you have heart disease or experience shortness of breath or chest pain. REDUCE STRESS Chronic emotional and physical stress leads to disease. Ways of reducing stress include meditation, visualization, prayer, yoga and other forms of relaxation therapy. Consistency is the armendariz. Find a technique that works for you and do it every day. CULTIVATE RELATIONSHIPS Loneliness and isolation have a major negative impact on health. Seek out others who can love, care for and nurture you. Avoid hurtful relationships. MAINTAIN IDEAL BODY WEIGHT The best way to do this is to do all the things above. Our bodies naturally find the right weight if we keep moving and feed ourselves the right food. If your BMI is greater than 25, we strongly recommend a referral to a weight management program. Please speak to us or your family physician about available programs. AVOID NICOTINE IN ALL FORMS This includes all tobacco products, whether chewed, smoked, vaped, or rubbed on the skin. Smoking cessation programs, which can make use of tobacco substitutes, medications to suppress cravings and behavior management, are available. Please contact your family physician about programs in your area.Visit Notes:>> Alex (Rn) LEDY Murray Mon May 08, 2017 9:39 AM Status: SignedCopy of OV note mailed to Dr. Romo's office.Prescriptions ordered this encounter Disp Refills Start End METOPROLOL SUCCINATE ER 25 MG TABLET* 45 t* 3 05/05/2017 Sig: TAKE ONE-HALF (1/2) TABLET EVERY OTHER DAYMedications Discontinued During This Encounter metoprolol succinate ER (TOPROL XL) * 45 t* 3 05/05/2016 05/05/2017 Sig: TAKE ONE-HALF (1/2) TABLET EVERY OTHER DAY Disc: Reason for discontinue is not on file. Status:Closed by SELENE COSBY MD on 05/05/17 [facility] PROGRESSon 05-05-2017 PROGRESS HNO ID: [id number] thor: Selene Villela: (none)Author Type: PhysicianType: Progress NotesFiled: 05/05/2017 9:28 AMNote Text:PERTINENT CARDIAC HISTORYASHD - s/p PCI RCA 2004Carotid artery diseaseHTNHLADHERENCE TO GUIDELINESACE-I or ARB for HF with prior LVEF<40 (NQF 0081) - N/AASA or Plavix for ASHD (NQF 0067) - METBeta ryan for ASHD with prior LA or prior LVEF<40 (NQF 0070) - N/ABeta ryan for HF with prior LVEF<40 (NQF 0083) - N/AACE-I or ARB for ASHD with DM or prior LVEF<40 (NQF 0066) - N/AStatin therapy for ASHD or FHL or DM - METBMI documented and plan if >25 (NQF 0421) - lifestyle recommendation formTobacco use screening and referral (NQF 0028) - lifestyle recommendationformRecommenda tion for whole food, plant based diet - lifestyle recommendationformCLINICAL IMPRESSION/PLAN:Andrew Guardado is doing well. His coronary disease is stable and bloodpressure well controlled. I've encouraged him to be active.We will call him with results of his labs. He will continue his currentmedications.I will see him in 12 months or as needed.Written and verbal health teaching given to patient, patient verbalizesunderstanding and agrees with treatment plan.This note was generated using [employer] voice recognition system, and theremay be some incorrect words, spellings, and punctuation that were notnoted in checking the note before saving.DIAGNOSIS FOR VISIT:ASHDHISTORY OF PRESENT ILLNESSAndrew Guardado returns for follow-up of his coronary disease andhypertension.He reports stable exercise tolerance. He has had no chest discomfort andhas used no nitroglycerin. He is tolerating medications well.He denies orthopnea, edema, syncope, palpitations, TIAs, amaurosis andclaudication.ALLERGIES:AL Saeid Known AllergiesCURRENT OUTPATIENT MEDICATIONS:metoprolol succinate ER (TOPROL XL) 25 mg 24 hr tablet TAKE ONE-HALF (1/2)TABLET EVERY OTHER DAYsimvastatin (ZOCOR) 40 mg tablet TAKE 1 TABLET EVERY DAY AT BEDTIMECoenzyme Q10 (CO Q-10) 200 mg cap Take by mouth daily at bedtime.alpha tocopheryl acetate 400 unit capsule Take 400 Units by mouth oncedaily.Garlic 600 mg cap Take 1 capsule by mouth once daily.VITAMIN B COMPLEX (B COMPLEX ORAL) Take 1 tablet by mouth once daily.ASPIRIN 81 MG TAB Take one (1) tablet daily .MULTI-VITAMIN ORAL Take 1 tablet by mouth once daily.PHYSICAL EXAMINATION:VITAL SIGNS: BP 116/70 Pulse 56 Ht 5' 9 (1.75m) Wt 214 lb 12.8 oz(97.4kg) BMI 31.71 kg/(m2).Chest: Clear to percussion and auscultation. Trachea is midline. Airentry is equal. Cardiac: Regular rhythm. S1 and S2 are normal. PMI isnondisplaced. There is a soft systolic ejection murmur. Carotids arebrisk without bruits. JVP is less than 10 cm. Abdomen: Soft andnontender. There are no pulsatile masses or bruits. No liverenlargement. Bowel sounds are active. Extremities: No edema. Pulses areintact and symmetrical.EKG shows sinus bradycardia and is within normal limits. There is nochange from 05/05/16.Laboratory studies are pending.Electronically Signed:Selene Cosby MDBarrow Neurological Instituteuary 2017 9:12 [facility]: Shelli Romo MD [facility] OBSOLETEon 02-20-2017 OBSOLETE Refill (AGCARDWST) -------ANDREW GUARDADO ([id number]) 1945 MDate Time Provider Vthujomngu62/4/17 SELENE COSBY AGCARDWST During your visit today, we recorded the following information about you:Selene Cosby MD 02/20/2017 5:37 PM SignedThe following approved medication requests have been transmitted electronically.Signed Prescriptions Disp Refills simvastatin (ZOCOR) 40 mg tablet 90 tablet 3 Sig: TAKE 1 TABLET EVERY DAY AT BEDTIME ROSITA: No Authorizing Provider: SELENE COSBY MDAdam Gilmor, RN, RN 02/20/2017 5:49 PM Signedescript confirmedAllergies As of Date: 02/20/2017(No Known Allergies)Date Reviewed: 05/05/2016Reviewed by: Jenny Yo Ma - Fully AssessedReason for Visit: Refill Request [94]Order(s):simvastatin (ZOCOR) 40 mg tabletTAKE 1 TABLET EVERY DAY AT BEDTIMEDisp: 90 tabletRfl: 3Prescriptions as of 02/20/2017 Sig: SIMVASTATIN 40 MG TABLET TAKE 1 TABLET EVERY DAY AT BE* COENZYME Q10 200 MG CAPSULE Take by mouth daily at bedti* METOPROLOL SUCCINATE ER 25 MG* TAKE ONE-HALF (1/2) TABLET EV* MULTI-VITAMIN ORAL Take 1 tablet by mouth once d* VITAMIN E 400 UNIT CAPSULE Take 400 Units by mouth once * GARLIC 600 MG CAPSULE Take 1 capsule by mouth once * B COMPLEX ORAL Take 1 tablet by mouth once d* ASPIRIN 81 MG TABLET Take one (1) tablet daily .Problem List As Of Date 02/20/2017 Noted Resolved ARTERIAL DISEASE NEC [I77.89] INVALID FOR* Epidermal Cyst [L72.0] INVALID FOR* Seborrheic Keratosis [L82.1] INVALID FOR* Solar Lentigo [L81.4] INVALID FOR* Actinic Damage//Sun-Damaged Skin [L57.8] INVALID FOR* Cigarette smoker [F17.210] INVALID FOR* Personal history of malignant neoplasm of laryn*INVALID FOR*Prescriptions ordered this encounter Disp Refills Start End SIMVASTATIN 40 MG TABLET 90 t* 3 02/20/2017 Sig: TAKE 1 TABLET EVERY DAY AT BEDTIMEMedications Discontinued During This Encounter simvastatin (ZOCOR) 40 mg tablet 90 t* 3 05/05/2016 02/20/2017 Route: ORAL Sig: Take 1 tablet by mouth daily at bedtime. Disc: Reason for discontinue is not on file. Status:Closed by ALEX MURRAY on 02/20/17 [facility] Office Visit: breast sami 11-23-2016 Documentation of current medications (procedure) Done Invalid Interpretation Code [facility] Surgical [facility] Work Phone: Fall risk assessment No Invalid Interpretation Code [facility] Work Phone: Tobacco smoking status NHIS Never Invalid Interpretation Code [facility] Work Phone: Tobacco use CPHS Former smoker Invalid Interpretation Code [facility] Work Phone: Vital Signs Date Time Vital Sign Value Performing Clinician Facility 04-01-2021 08:24-0500 Body height 175.[address] Shelli Romo Work Phone: [facility] Work Phone: 04-01-2021 08:24-0500 Body mass index (BMI) [Ratio] 27.8 kg/m2 Dr. Shelli Romo Work Phone: [facility] Work Phone: 04-01-2021 08:24-0500 Body weight 85.[address] Shelli Romo Work Phone: [facility] Work Phone: 04-01-2021 08:24-0500 Diastolic blood pressure 82 mm[Hg] Dr. Shelli Romo Work Phone: [facility] Work Phone: 04-01-2021 08:24-0500 Heart rate 54 /min Dr. Shelli Romo Work Phone: [facility] Work Phone: 04-01-2021 08:24-0500 Respiratory rate 18 /min Dr. Shelli Romo Work Phone: [facility] Work Phone: 04-01-2021 08:24-0500 SaO2% (BldA) [Mass fraction] 94 % Dr. Shelli Romo Work Phone: [facility] Work Phone: 04-01-2021 08:24-0500 Systolic blood pressure 157 mm[Hg] Dr. Shelli Romo Work Phone: [facility] Work Phone: 11-23-2016 14:36-0400 BMI (Body Mass Index) 28.79 kg/m2 Bhaskar Lyels MD [facility] Work Phone: 11-23-2016 14:36-0400 BP Diastolic 87 mm[Hg] Bhaskar Lyles MD [facility] Work Phone: 11-23-2016 14:36-0400 BP Systolic 150 mm[Hg] Bhaskar Lyles MD [facility] Work Phone: 11-23-2016 14:36-0400 Height 175.26 cm Bhaskar Lyles MD [facility] Work Phone: 11-23-2016 14:36-0400 Pulse (Heart Rate) 51 /min Bhaskar Lyles MD [facility] Work Phone: 11-23-2016 14:36-0400 Respiratory Rate 18 /min Bhaskar Lyles MD [facility] Work Phone: 11-23-2016 14:36-0400 Weight 88.45 kg Bhaskar Lyles MD [facility] Work Phone: Encounters Encounter Date Encounter Type Care Provider Facility Start: 10-28-2024 End: 10-28-[address] Héctor Bustos MD Work Phone: -Laboratory [facility] Start: 10-28-2024 End: 10-28-[address] Héctor Bustos MD -Laboratory [facility] Start: 10-28-2024 End: 10-28-2024 ambulatory Héctor Bustos Facility:[facility] Start: 02-28-2024 End: 02-28-2024 ambulatory Get Murillo Facility:[facility] Start: 02-17-2024 End: 02-18-2024 Emergency department patient visit Shelli Romo Facility:[facility] Start: 07-24-2023 End: 07-24-2023 ambulatory [facility] Work Phone: Start: 07-24-2023 End: 07-24-2023 Patient encounter procedure [facility] Start: 07-20-2022 End: 07-20-2022 ambulatory [facility] Work Phone: Start: 07-20-2022 End: 07-20-2022 Patient encounter procedure [facility] Start: 06-21-2021 End: 06-21-[address] Shelli Romo Work Phone: [facility] Start: 05-06-2021 Non-patient / Non-visit Dr. Luis Romo Work Phone: [facility] Start: 05-06-2021 End: 05-06-[address] Shelli Romo Work Phone: [facility]-Pulmonary Services/Neurology Start: 04-14-2021 Non-patient / Non-visit Dr. Luis Romo Work Phone: [facility] Start: 04-14-2021 End: 04-14-[address] Shelli Romo Work Phone: [facility]-Cardiovascula r Services Start: 04-01-2021 End: 04-01-[address] Shelli Romo Work Phone: [facility] Start: 03-23-2021 Non-patient / Non-visit Dr. Luis Romo Work Phone: [facility] Start: 05-07-2018 [facility] Facility :[facility] Start: 05-05-2017 End: 05-05-2017 [facility] Facility:[facility] Procedures Date Procedure Procedure Detail Performing Clinician Start: 10-28-2024 Urine microalbumin/creatinine ratio measurement Dr. Héctor Bustos MD Work Phone: Start: 10-28-2024 Vitamin D, 25-hydrox y measurement Dr. Héctor Bustos MD Work Phone: Comment on above: Vitamin D StatusDefi ciency: <20 ng/mL (50nmol/L)Insufficiency: 20-30 ng/mL (50-75 nmol/L)Sufficiency: 30-100 ng/mL (75-250 nmol/L)Toxicity: >100 ng/mL (>250 nmol/L) Start: 05-06-2021 Plain chest X-ray Dr. Larry Romo Work Phone: Start: 04-14-2021 Nuclear Stress Test - Chemical Dr. Shelli Romo Work Phone: Start: 11-23-2016 End: 11-28-2016 Bx breast 1st Lesion US imag Bhaskar Lyles MD Work Phone: Plan of Treatment Date Care Activity Detail Author [facility] Work Phone: Payers Date Payer Category Payer Self-pay [id number] 2021 Medicare [id number] Unknown [id number] Medicare [id number] Unknown [id number] Unknown [id number] Unknown [id number] Social History Date Type Detail Facility Start: 04-01-2021 End: 09-29-2021 Tobacco smoking status MTIS Unknown if ever smoked [facility] Start: 1945 Sex Assigned At Male [facility] Start: 02-17-2024 Tobacco smoking stat us MTIS Smokes tobacco daily (finding) [facility] Clinical Note 05-13-2020 Note Date & Type Note Facility 05-13-2020 Note Patient Outreach ([place] [facility]) ANDREW GUARDADO ([id number]) 1945 M Date Time Provider Department 05/13/20 JOEY YOU During your visit today, we recorded the following information about you: Allergies As of Date: 05/13/2020 (No Known Allergies) Date Reviewed: 05/07/2018 Reviewed by: Kali (Rn) Rony - Fully Assessed Order(s):SARS-COVID VACCINE 1ST DOSE APPT [[id number]] Order #: [id number] FUTURE Prescriptions as of 05/13/2020 Sig: GARLIC 1,000 MG CAPSULE Take 1,000 mg by mouth once d* MESALAMINE 1,000 MG RECTAL WARD* 1,000 mg by RECTAL route marcia* MESALAMINE 4 GRAM/60 ML ENEMA 4 g by RECTAL route at bedtim* PREDNISONE ORAL Take 15 mg by mouth once marcia* GLIMEPIRIDE 2 MG TABLET Take 2 mg by mouth daily with* METFORMIN 500 MG TABLET Take 500 mg by mouth daily wi* IRON-C ORAL Take 65 mg by mouth once marcia* BALSALAZIDE 750 MG CAPSULE Take 2,250 mg by mouth three * CHOLECALCIFEROL (VITAMIN D3) * Take 400 Units by mouth once * MELATONIN 10 MG TABLET Take 10 mg by mouth. TURMERIC ORAL Take 500 mg by mouth. METOPROLOL SUCCINATE ER 25 MG* TAKE ONE-HALF (1/2) TABLET EV* SIMVASTATIN 40 MG TABLET TAKE 1 TABLET EVERY DAY AT BE* COENZYME Q10 200 MG CAPSULE Take by mouth daily at bedti* MULTI-VITAMIN ORAL Take 1 tablet by mouth once d* VITAMIN E 400 UNIT CAPSULE Take 400 Units by mouth once * GARLIC 600 MG CAPSULE Take 1 capsule by mouth once * B COMPLEX ORAL Take 1 tablet by mouth once d* ASPIRIN 81 MG TABLET Take one (1) tablet daily . Problem List As Of Date 05/13/2020 Noted Resolved ARTERIAL DISEASE NEC [I77.89] 06/28/2005 Epidermal Cyst [L72.0] 04/23/2009 Seborrheic Keratosis [L82.1] 04/23/2009 Solar Lentigo [L81.4] 04/23/2009 Actinic Damage//Sun-Damaged Skin [L57.8] 04/23/2009 Cigarette smoker [F17.210] 09/19/2012 Personal history of malignant neoplasm of laryn*09/19/2012 Letter Text Encounter Status:Closed by GELY FUNG on 05/18/20 [facility] Evaluation note 11-19-2003 Note Date & Type Note Facility 11-19-2003 Evaluation note Diagnosis Onset Date Atherosclerotic heart diseas e of [place] coronary artery without angina pectoris acute Essential hypertension acute Mixed hyperlipidemia acute Presence of stent in coronar y artery November, acute [facility] Work Phone: Evaluation note Note Date & Type Note Facility Evaluation note No assessment information availa ble [facility] Work Phone: Reason for referral (narrative) Note Date & Type Note Facility Reason for referral (narrative) No reason for referral information available [facility] Work Phone: Summary Purpose Family History No Family History Records FoundNo Family History Records FoundNo Family History Records FoundNo Family History Records FoundNo Family History Records Found Advance Directives No Advanced Directives Records Found Advance Directive Response Recorded Date/ Time Living Will No August 14, 2017 4 :22pm Power of Community Relations Police Lieutenant No August 14, 2017 4:22pm Chief Complaint and Reason for Visit Chief Complaint Amb Documentation LOCAL DOC, STENTS (PREV ALEA PT) CAD ASHD DYSPNEA/E ORDERS DYSPNEA/E ORDERS Reason for Visit Atherosclerotic hear t disease of [place] coronary artery without angina pectoris Essential hypertension Mixed hyperlipidemia Presence of stent in coronary artery Additional Source Comments (unrecognized sect ion and content) No Status Records FoundNo Status Records FoundNo Status Records FoundNo Status Records FoundNo Status Records Found INFORMATION SOURCE (unrecogn ized section and content) DATE CREATED AUTHOR 09/08/2017 [facility] DATE CREATED AUTHOR AUTHOR'S ORGANIZ ATION 09/08/2017 [facility] DATE CREATED AUTHOR AUTHOR'S ORGANIZ ATION 09/12/2017 [facility] DATE CREATED AUTHOR AUTHOR'S ORGANIZ ATION 04/13/2021 [facility] DATE CREATED AUTHOR AUTHOR'S ORGANIZ ATION 11/03/2024 [facility] Goals (unrecognized section and content) Goals may be documented in a n alternate sectionGoals may be documented in an alternate sectionGoals may be documented in an alternate sectionGoals may be documented in an alternate section Care Teams (unrecognized sec tion and content) Team Status: Active Member Role Status Dates Dr. Shelli Romo MD Family Provider Active Dr. Shelli Romo MD Primary Care Provider Active Team Status: Inactive Member Role Status Dates Dr. Shelli Romo MD Primary Care Provider, [facility] Provider Active Team Status: Active Member Role/Relationship Status Dates Dr. Shelli Romo MD Family Provider Active Dr. Héctor Bustos MD Primary Care Provider Active Team Status: Inactive Member Role/Relationship Status Dates Dr. Héctor Bustos MD Primary Care Provider Active Start: October 28, 2024 End: October 28, 2024 Dr. Héctor Bustos MD Attending Provider Active St art: October 28, 2024 End: October 28, 2024 FOR RECORDS PERTAINING TO PATIENTS WHO ARE OR HAVE BEEN ENROLLED IN A CHEMICAL DEPENDENCY/SUBSTANCEABUSE PROGRAM, SOME INFORMATION MAY BE OMITTED. This clinical summary was aggregated from multiple sources. Caution should be exercised in using it in the provision of clinical care. This summary normalizes information from multiple sources, and as a consequence, information in this document may materially change the coding, format and clinical context of patient data. In addition, data may be omitted in some cases. CLINICAL DECISIONS SHOULD BE BASED ON THE PRIMARY CLINICAL RECORDS. [employer] [facility]. provides no warranty or guarantee of the accuracy or completeness of information in this document.
== END | disposition home or self-care (01) ==
LOC: CT 07:48
PROVIDERS: PCP Family Medicine; Referring Provider Nurse Practitioner Family; Visit Provider Nurse Practitioner Family
DX: Z12.2 Encounter for screening for malignant neoplasm of respiratory organs (principal); F17.210 Nicotine dependence, cigarettes, uncomplicated
CPT/HCPCS: 71271